=== PATIENT | female | born 1975 | race Caucasian/White ===

== ENCOUNTER → 2020-11-23 07:47 | Outpatient (CLI) | payer OTHER, SELFPAY ==
--- NOTE | 2020-11-23 07:53 | MM_ITS ---
PROCEDURE: MM DIG SCREENING MAMM BI W/CAD Digital Breast Tomosynthesis Included CLINICAL INDICATION: SCREENING COMPARISON: MG Screening-Bilateral Mammography from 05/30/2018 MG Screening-Bilateral Mammography from 10/15/2019 TECHNIQUE: Standard CC and MLO images and 3D Tomosynthesis was obtained. R2 CAD reviewed. FINDINGS: Scattered fibroglandular densities are seen throughout both breast and the findings are bilateral and symmetrical. There is a mole marker right breast. A single CAD marking left breast was reviewed appears to be benign. There is no suspicious lesion in either breast and no suspicious microcalcifications. IMPRESSION: Fibrofatty parenchyma with no suspicious lesions seen BI-RAD Category: 1 Negative FOLLOW-UP: 1YR 1 Year Follow-up (A letter has been sent to the patient regarding results of the study.) Dictated by: Dr. Avery Tate MD 11/26/2020 15:43 Dr. Avery Tate MD in [place] 11/26/2020 15:43
== END ==
PROVIDERS: PCP Family Medicine; Visit Provider Family Medicine
DX: Z12.31 Encounter for screening mammogram for malignant neoplasm of breast (principal)
CPT/HCPCS: 77063; 77067

== ENCOUNTER → 2021-03-04 16:09 | Outpatient (CLI) | payer OTHER, SELFPAY ==
[2021-03-06 08:16] LABS: FSH 9.7 mIU/mL (.); LH 17.4 mIU/mL (.)
== END ==
PROVIDERS: Visit Provider Nurse Practitioner Obstetrics & Gynecology
DX: E28.2 Polycystic ovarian syndrome (principal)
CPT/HCPCS: 36415; 83001; 83002

== ENCOUNTER → 2021-03-28 12:44 | Outpatient (CLI) | payer OTHER, SELFPAY ==
--- NOTE | 2021-03-28 12:44 | US_ITS ---
FINAL REPORT CLINICAL HISTORY: PELVIC PAIN -- INFERTILITY-- PAST HX OF PCOS FINDINGS: Transvaginal sonographic images of the pelvis were obtained. The uterus measures 7.1 by 3.5 by 4.5 cm. The endometrium measures 9 mm, which is within normal limits. There is a small hypoechoic foci in the myometrium consistent with fibroids. The right ovary measures 4.0 cm in length and left ovary measures 4.3 cm in length. Normal blood flow seen to the ovaries. Small cysts or follicles are present bilaterally. There is no evidence of free fluid. IMPRESSION: Small hypoechoic foci in the myometrium consistent with fibroids. Small cysts or follicles seen in each ovary. Reviewed, Interpreted and Dictated by Jaun Ward MD Transcribed by Melissa Rao Authenticated by Jaun Ward MD on 03/28/2021 02:20:17 PM [facility]
== END ==
PROVIDERS: PCP Family Medicine; Visit Provider Nurse Practitioner Obstetrics & Gynecology
DX: E28.2 Polycystic ovarian syndrome (principal)
CPT/HCPCS: 76830

== ENCOUNTER → 2022-02-08 08:18 | Outpatient (CLI) | payer OTHER, SELFPAY ==
--- NOTE | 2022-02-08 08:35 | MM_ITS ---
PROCEDURE INFORMATION: Exam: MG Bilateral Screening 3D Mammography Exam date and time: 02/08/2022 8:28 AM Age: 46 years old Clinical indication: Screening examination. Her mother had breast cancer. TECHNIQUE: Imaging protocol: Bilateral Screening tomosynthesis and 2D mammography including computer-aided detection (CAD) when performed. COMPARISON: 1. MG MM DIG SCREENING MAMM BI W/CAD 11/23/2020 8:03 AM 2. MG Screening-Bilateral Mammography 10/15/2019 9:42 AM MG Screening-Bilateral Mammography 05/30/2018 9:19 AM MG DMSB DIGITAL MAMM-SCREEN BILATERAL 04/12/2012 10:43 AM MG DMSB DIGITAL MAMM-SCREEN BILATERAL 03/30/2011 1:53 PM MG DMDXUL DIG MAMM-DX UNILATERAL-LT 05/02/2010 2:54 PM MG DMSB DIGITAL MAMM-SCREEN BILATERAL 04/19/2010 10:07 AM FINDINGS: MAMMOGRAPHY: Breast composition: There are scattered areas of fibroglandular density. Mass: Possible 0.3 cm lobulated mass in the left upper outer quadrant, middle 3rd, 8 cm from the nipple. Architectural distortion: None. Calcifications: No suspicious calcifications. Asymmetric density: None. Skin thickening: None. Axillary adenopathy: None. IMPRESSION: Patient to be recalled for left diagnostic spot compression in the CC and MLO view and left sonography for further evaluation of possible lobulated mass in the left breast. ASSESSMENT: BI-RADS Category 0: Incomplete- Need Additional Imaging Evaluation and/or Prior Mammograms for Comparison
== END ==
PROVIDERS: PCP Family Medicine; Visit Provider Family Medicine
DX: Z12.31 Encounter for screening mammogram for malignant neoplasm of breast (principal)
CPT/HCPCS: 77063; 77067

== ENCOUNTER → 2022-03-07 13:36 | Outpatient (CLI) | payer OTHER, SELFPAY ==
--- NOTE | 2022-03-07 13:41 | MM_ITS ---
PROCEDURE INFORMATION: Exam: US Left Breast, Complete MG Left Diagnostic Breast Tomosynthesis Exam date and time: 03/07/2022 1:37 PM Age: 46 years old Clinical indication: Recall on the basis of screening mammogram 02/08/2022 for further evaluation possible 0.3 cm lobulated mass in the left upper outer quadrant. TECHNIQUE: Imaging protocol: Complete ultrasound of all four quadrants of the Left breast and the retroareolar regions, including ultrasound of the axilla when performed. Left Diagnostic tomosynthesis and 2D mammography including computer-aided detection (CAD) when performed. Unilateral or bilateral exam. COMPARISON: 1. MG MM DIG SCREENING MAMM BI W/CAD 02/08/2022 8:28 AM 2. MG MM DIG SCREENING MAMM BI W/CAD 11/23/2020 8:03 AM 3. MG Screening-Bilateral Mammography 10/15/2019 9:42 AM FINDINGS: MAMMOGRAPHY: Spot compression confirms isodense 0.3 cm lobulated mass in the upper outer quadrant middle 3rd. ULTRASOUND: Left sonography, all 4 quadrants retroareolar and axilla demonstrates a 0.5 cm probable flattened cyst at 2 o'clock 8 cm from the nipple which appears to correlate with the mammographic finding. Sonographically unremarkable left axillary lymph node. IMPRESSION: Screening detected left breast mass corresponds to a probably benign cyst, suggest six-month follow-up left diagnostic mammogram and left targeted sonography, unless otherwise clinically indicated. ASSESSMENT: BI-RADS Category 3: Probably benign
== END ==
PROVIDERS: PCP Family Medicine; Visit Provider Family Medicine
DX: R92.8 Other abnormal and inconclusive findings on diagnostic imaging of breast (principal)
CPT/HCPCS: 76641; 77061; 77065; G0279

== ENCOUNTER → 2022-06-29 09:18 | Outpatient (CLI) | payer OTHER, SELFPAY ==
[2022-06-29 10:07] LABS: Basophils % 0.5 % (0.1-2.0); Eosinophils # 0.2 K/mm3 (0.0-0.4); Eosinophils % 1.9 % (0.1-12.0); Hematocrit 39.8 % (37.0-47.0); Hemoglobin 12.2 g/dL (12.2-16.2); Lymphocytes # 2.4 K/mm3 (0.7-4.5); Mean Corpuscular HGB Conc 30.8 g/dL (31.8-35.4); Mean Corpuscular Volume 87.6 fl (81-99); Monocytes # 0.5 K/mm3 (0.1-1.0); Neutrophils # 6.1 K/mm3 (1.8-7.8); Neutrophils % 66.6 % (37.0-80.0); Platelet Count 207 K/mm3 (142-424); Red Blood Count 4.54 M/mm3 (4.20-5.40); Red Cell Distribution Width 16.1 % (11.5-17.5); White Blood Count 9.2 K/mm3 (4.8-10.8)
[2022-06-29 10:30] LABS: Alanine Aminotransferase 30 U/L (12-78); Alkaline Phosphatase 92 U/L (38-126); Anion Gap 11.4 mEq/L (5-15); Aspartate Amino Transferase 29 U/L (14-36); Bilirubin,Total 0.4 mg/dl (0.2-1.3); Blood Urea Nitrogen 12 mg/dl (7-17); Calcium 8.5 mg/dl (8.4-10.2); Carbon Dioxide 24 mmol/L (22.0-30.0); Chloride 105 mmol/L (98-107); Chol/HDL Ratio 4.8 (1-3.5); Cholesterol 149 mg/dl (140-200); Estimated Glomerular Filt Rate 78 ml/min (>60); GFR (African American) 94 ML/MIN (>60); Glucose 147 mg/dl (74-100); HDL Cholesterol 31 mg/dl (40-60); Potassium 4.4 mmoL/L (3.5-5.1); Sodium 136 mmol/L (136-145); Triglycerides 196 mg/dl (30-150); VLDL Cholesterol 39 mg/dL (0-40)
[2022-06-29 10:39] LABS: 25-OH Vitamin D, Total 41.6 ng/mL (30-100)
[2022-06-29 10:41] LABS: Direct LDL Cholesterol 97.53 mg/dL (100-129)
[2022-06-29 10:59] LABS: Thyroid Stimulating Hormone 1.08 uIU/mL (0.465-4.68)
[2022-06-29 11:35] LABS: Vitamin B12 491 pg/mL (239-931)
[2022-06-30 13:18] LABS: Triiodothyronine (T3) Free 2.6 pg/mL (2.0-4.4)
== END ==
PROVIDERS: PCP Family Medicine; Visit Provider Family Medicine
DX: Z00.00 Encounter for general adult medical examination without abnormal findings (principal); E11.9 Type 2 diabetes mellitus without complications; E78.00 Pure hypercholesterolemia, unspecified; E78.5 Hyperlipidemia, unspecified; R53.83 Other fatigue; Z79.84 Long term (current) use of oral hypoglycemic drugs; E66.9 Obesity, unspecified; Z68.41 Body mass index [BMI] 40.0-44.9, adult
CPT/HCPCS: 36415; 80053; 80061; 82306; 82607; 82746; 83036; 84439; 84443; 84481; 85025

== ENCOUNTER → 2022-10-03 07:17 | Outpatient (CLI) | payer OTHER, SELFPAY ==
[2022-10-03 07:26] LABS: Microscopic, Urine URINE MICROSCOPIC (MICROSCOPIC)
[2022-10-03 07:42] LABS: Basophils % 0.5 % (0.1-2.0); Eosinophils # 0.5 K/mm3 (0.0-0.4); Eosinophils % 5.8 % (0.1-12.0); Hematocrit 37.6 % (37.0-47.0); Lymphocytes # 2.4 K/mm3 (0.7-4.5); Lymphocytes % 28.7 % (10-50); Mean Corpuscular HGB Conc 31.9 g/dL (31.8-35.4); Mean Corpuscular Hemoglobin 27.1 pg (27.0-31.2); Mean Corpuscular Volume 84.9 fl (81-99); Monocytes # 0.5 K/mm3 (0.1-1.0); Monocytes % 5.5 % (1.7-9.3); Neutrophils # 4.9 K/mm3 (1.8-7.8); Neutrophils % 59.5 % (37.0-80.0); Platelet Count 208 K/mm3 (142-424); Red Blood Count 4.43 M/mm3 (4.20-5.40); Red Cell Distribution Width 14.2 % (11.5-17.5); White Blood Count 8.3 K/mm3 (4.8-10.8)
[2022-10-03 07:45] LABS: Appearance,Urine CLEAR (Clear); Bilirubin,Urine Negative (Negative); Blood, Urine Negative (Negative); Color,Urine YELLOW (Yellow); Glucose,Urine (UA) Negative (Negative); Ketones,Urine Negative (Negative); Leukocyte Esterase,Urine Negative (Negative); Nitrate,Urine Negative (Negative); Protein,Urine Negative (Negative); Specific Gravity, Urine 1.025 (1.005-1.030); Urobilinogen,Urine 0.2 EU/dl (0.2)
[2022-10-03 08:18] LABS: Alanine Aminotransferase 30 U/L (12-78); Alkaline Phosphatase 93 U/L (38-126); Aspartate Amino Transferase 32 U/L (14-36); Bilirubin,Total 0.2 mg/dl (0.2-1.3); Blood Urea Nitrogen 17 mg/dl (7-17); Carbon Dioxide 28 mmol/L (22.0-30.0); Cholesterol 143 mg/dl (140-200); Estimated Glomerular Filt Rate 91 ml/min (>60); GFR (African American) 110 ML/MIN (>60); Triglycerides 214 mg/dl (30-150); VLDL Cholesterol 43 mg/dL (0-40)
[2022-10-03 08:29] LABS: Direct LDL Cholesterol 85.87 mg/dL (100-129)
[2022-10-03 08:33] LABS: Free T4 (Free Thyroxine) 1.02 ng/dl (0.78-2.19)
[2022-10-03 08:35] LABS: Albumin Level 3.9 g/dl (3.5-5.0); Anion Gap 10.3 mEq/L (5-15); Calcium 9.2 mg/dl (8.4-10.2); Chloride 104 mmol/L (98-107); Chol/HDL Ratio 4.2 (1-3.5); Glucose 140 mg/dl (74-100); HDL Cholesterol 34 mg/dl (40-60); Potassium 4.3 mmoL/L (3.5-5.1); Sodium 138 mmol/L (136-145); Total Protein,Serum 5.9 g/dl (6.3-8.2)
[2022-10-03 08:48] LABS: Thyroid Stimulating Hormone 1.66 uIU/mL (0.465-4.68)
[2022-10-03 09:23] LABS: Vitamin B12 662 pg/mL (239-931)
[2022-10-03 09:24] LABS: Folate 5.82 ng/mL
[2022-10-03 09:48] LABS: Hemoglobin A1C 6.3 % (4.0-6.0)
== END ==
PROVIDERS: PCP Family Medicine; Visit Provider Family Medicine
DX: Z00.00 Encounter for general adult medical examination without abnormal findings (principal); E11.9 Type 2 diabetes mellitus without complications; R53.83 Other fatigue; E78.00 Pure hypercholesterolemia, unspecified; Z79.84 Long term (current) use of oral hypoglycemic drugs
CPT/HCPCS: 36415; 80053; 80061; 81001; 82043; 82306; 82607; 82746; 83036; 84439; 84443; 84481; 85025

== ENCOUNTER → 2023-01-10 07:51 | Outpatient (CLI) | payer OTHER, SELFPAY ==
[2023-01-10 08:31] LABS: Basophils % 0.5 % (0.1-2.0); Eosinophils # 0.1 K/mm3 (0.0-0.4); Eosinophils % 1.6 % (0.1-12.0); Hematocrit 38.7 % (37.0-47.0); Hemoglobin 13.1 g/dL (12.2-16.2); Lymphocytes # 1.8 K/mm3 (0.7-4.5); Lymphocytes % 22.2 % (10-50); Mean Corpuscular HGB Conc 33.8 g/dL (31.8-35.4); Mean Corpuscular Hemoglobin 29.8 pg (27.0-31.2); Mean Corpuscular Volume 88.3 fl (81-99); Mean Platelet Volume 8.8 fl (7.4-10.4); Monocytes # 0.4 K/mm3 (0.1-1.0); Monocytes % 4.8 % (1.7-9.3); Neutrophils # 5.9 K/mm3 (1.8-7.8); Neutrophils % 70.8 % (37.0-80.0); Platelet Count 169 K/mm3 (142-424); Red Blood Count 4.38 M/mm3 (4.20-5.40); Red Cell Distribution Width 15.7 % (11.5-17.5); White Blood Count 8.3 K/mm3 (4.8-10.8)
[2023-01-10 09:27] LABS: Hemoglobin A1C 5.9 % (4.0-6.0)
[2023-01-10 09:50] LABS: Chloride 104 mmol/L (98-107)
[2023-01-10 09:51] LABS: Potassium 4.2 mmoL/L (3.5-5.1); Sodium 138 mmol/L (136-145)
[2023-01-10 09:53] LABS: Blood Urea Nitrogen 16 mg/dl (7-17); Estimated Glomerular Filt Rate 90 ml/min (>60); GFR (African American) 109 ML/MIN (>60)
[2023-01-10 09:54] LABS: Alanine Aminotransferase 37 U/L (12-78); Albumin Level 3.9 g/dl (3.5-5.0); Albumin/Globulin Ratio 1.9 (1.1-1.8); Alkaline Phosphatase 92 U/L (38-126); Anion Gap 13.2 mEq/L (5-15); Aspartate Amino Transferase 36 U/L (14-36); Bilirubin,Total 0.2 mg/dl (0.2-1.3); Calcium 8.7 mg/dl (8.4-10.2); Carbon Dioxide 25 mmol/L (22.0-30.0); Chol/HDL Ratio 5.1 (1-3.5); Cholesterol 153 mg/dl (140-200); Globulin 2.1 g/dL (1.3-3.2); Glucose 138 mg/dl (74-100); HDL Cholesterol 30 mg/dl (40-60); Iron 55 ug/dL (37-170); Triglycerides 135 mg/dl (30-150); VLDL Cholesterol 27 mg/dL (0-40)
[2023-01-10 10:02] LABS: 25-OH Vitamin D, Total 43.2 ng/mL (30-100); Free T4 (Free Thyroxine) 1.04 ng/dl (0.78-2.19)
[2023-01-10 10:04] LABS: Total Iron Binding Capacity 371 ug/dL (265-497)
[2023-01-10 10:06] LABS: Direct LDL Cholesterol 101.49 mg/dL (100-129)
[2023-01-10 10:17] LABS: Thyroid Stimulating Hormone 1.24 uIU/mL (0.465-4.68)
[2023-01-10 10:29] LABS: Ferritin 14.9 ng/ml (6.24-137)
[2023-01-10 10:52] LABS: Vitamin B12 698 pg/mL (239-931)
[2023-01-10 11:05] LABS: Folate 9.69 ng/mL
== END ==
PROVIDERS: PCP Family Medicine; Visit Provider Family Medicine
DX: E11.9 Type 2 diabetes mellitus without complications (principal); D64.9 Anemia, unspecified; Z68.41 Body mass index [BMI] 40.0-44.9, adult; R53.83 Other fatigue; Z79.84 Long term (current) use of oral hypoglycemic drugs; Z00.00 Encounter for general adult medical examination without abnormal findings
CPT/HCPCS: 36415; 80053; 80061; 82306; 82607; 82728; 82746; 83036; 83540; 83550; 84439; 84443; 84481; 85025

== ENCOUNTER 2023-05-14 07:43 | Outpatient (CLI) | payer OTHER, SELFPAY ==
[2023-05-14 08:21] LABS: Basophils % 0.4 % (0.1-2.0); Eosinophils # 0.2 K/mm3 (0.0-0.4); Eosinophils % 1.8 % (0.1-12.0); Hematocrit 40.2 % (37.0-47.0); Hemoglobin 13.8 g/dL (12.2-16.2); Lymphocytes # 2.3 K/mm3 (0.7-4.5); Lymphocytes % 27.7 % (10-50); Mean Corpuscular HGB Conc 34.2 g/dL (31.8-35.4); Mean Corpuscular Hemoglobin 30.5 pg (27.0-31.2); Mean Platelet Volume 9.1 fl (7.4-10.4); Monocytes # 0.4 K/mm3 (0.1-1.0); Monocytes % 5.2 % (1.7-9.3); Neutrophils # 5.4 K/mm3 (1.8-7.8); Neutrophils % 64.8 % (37.0-80.0); Platelet Count 215 K/mm3 (142-424); Red Blood Count 4.52 M/mm3 (4.20-5.40); Red Cell Distribution Width 13.6 % (11.5-17.5); White Blood Count 8.3 K/mm3 (4.8-10.8)
[2023-05-14 09:01] LABS: Alanine Aminotransferase 33 U/L (12-78); Albumin Level 4.1 g/dl (3.5-5.0); Albumin/Globulin Ratio 1.9 (1.1-1.8); Alkaline Phosphatase 102 U/L (38-126); Anion Gap 9.6 mEq/L (5-15); Aspartate Amino Transferase 29 U/L (14-36); Bilirubin,Total 0.4 mg/dl (0.2-1.3); Blood Urea Nitrogen 10 mg/dl (7-17); Calcium 9.2 mg/dl (8.4-10.2); Carbon Dioxide 28 mmol/L (22.0-30.0); Chloride 107 mmol/L (98-107); Chol/HDL Ratio 4.6 (1-3.5); Cholesterol 124 mg/dl (140-200); Estimated Glomerular Filt Rate 68 ml/min (>60); GFR (African American) 82 ML/MIN (>60); Globulin 2.2 g/dL (1.3-3.2); Glucose 103 mg/dl (74-100); HDL Cholesterol 27 mg/dl (40-60); Potassium 4.6 mmoL/L (3.5-5.1); Sodium 140 mmol/L (136-145); Total Protein,Serum 6.3 g/dl (6.3-8.2); Triglycerides 165 mg/dl (30-150); VLDL Cholesterol 33 mg/dL (0-40)
[2023-05-14 09:02] LABS: Hemoglobin A1C 5.4 % (4.0-6.0)
[2023-05-14 09:12] LABS: Direct LDL Cholesterol 70.11 mg/dL (100-129)
[2023-05-14 09:19] LABS: Free T4 (Free Thyroxine) 1.16 ng/dl (0.78-2.19)
[2023-05-14 09:23] LABS: 25-OH Vitamin D, Total 63.2 ng/mL (30-100)
[2023-05-14 09:32] LABS: Thyroid Stimulating Hormone 0.85 uIU/mL (0.465-4.68)
[2023-05-14 10:08] LABS: Vitamin B12 756 pg/mL (239-931)
[2023-05-14 10:14] LABS: Folate 9.47 ng/mL
[2023-05-14 10:33] LABS: Iron 56 ug/dL (37-170)
[2023-05-14 10:42] LABS: Total Iron Binding Capacity 324 ug/dL (265-497)
[2023-05-14 11:08] LABS: Ferritin 9.61 ng/ml (6.24-137)
== END 2023-05-14 23:59 ==
LOC: LAB 07:44
PROVIDERS: PCP Family Medicine; Visit Provider Family Medicine
DX: E11.9 Type 2 diabetes mellitus without complications (principal); E78.00 Pure hypercholesterolemia, unspecified; D64.9 Anemia, unspecified; E66.9 Obesity, unspecified; Z68.39 Body mass index [BMI] 39.0-39.9, adult; Z79.899 Other long term (current) drug therapy
CPT/HCPCS: 36415; 80053; 80061; 82306; 82607; 82728; 82746; 83036; 83540; 83550; 84439; 84443; 84481; 85025

== ENCOUNTER 2023-08-21 07:33 | Outpatient (CLI) | payer OTHER, SELFPAY ==
[2023-08-21 08:53] LABS: Alanine Aminotransferase 24 U/L (12-78); Albumin Level 4.2 g/dl (3.5-5.0); Albumin/Globulin Ratio 1.8 (1.1-1.8); Alkaline Phosphatase 104 U/L (38-126); Anion Gap 13.4 mEq/L (5-15); Aspartate Amino Transferase 24 U/L (14-36); Bilirubin,Total 0.3 mg/dl (0.2-1.3); Blood Urea Nitrogen 13 mg/dl (7-17); Calcium 9.4 mg/dl (8.4-10.2); Carbon Dioxide 27 mmol/L (22.0-30.0); Chloride 102 mmol/L (98-107); Chol/HDL Ratio 4.1 (1-3.5); Cholesterol 147 mg/dl (140-200); Estimated Glomerular Filt Rate 78 ml/min (>60); GFR (African American) 94 ML/MIN (>60); Globulin 2.4 g/dL (1.3-3.2); Glucose 119 mg/dl (74-100); HDL Cholesterol 36 mg/dl (40-60); Potassium 4.4 mmoL/L (3.5-5.1); Sodium 138 mmol/L (136-145); Total Protein,Serum 6.6 g/dl (6.3-8.2); Triglycerides 226 mg/dl (30-150); VLDL Cholesterol 45 mg/dL (0-40)
[2023-08-21 09:04] LABS: Direct LDL Cholesterol 83.95 mg/dL (100-129)
[2023-08-21 09:14] LABS: Hemoglobin A1C 5.7 % (4.0-6.0)
== END 2023-08-21 23:59 | disposition home or self-care (01) ==
LOC: LAB 07:34
PROVIDERS: PCP Family Medicine; Visit Provider Family Medicine
DX: E11.9 Type 2 diabetes mellitus without complications (principal); E78.00 Pure hypercholesterolemia, unspecified
CPT/HCPCS: 36415; 80053; 80061; 83036

== ENCOUNTER 2023-11-13 07:41 | Outpatient (CLI) | payer OTHER, SELFPAY ==
[2023-11-13 09:25] LABS: Alanine Aminotransferase 29 U/L (12-78); Albumin Level 3.7 g/dl (3.5-5.0); Albumin/Globulin Ratio 1.5 (1.1-1.8); Alkaline Phosphatase 95 U/L (38-126); Anion Gap 10.6 mEq/L (5-15); Aspartate Amino Transferase 27 U/L (14-36); Bilirubin,Total 0.3 mg/dl (0.2-1.3); Blood Urea Nitrogen 12 mg/dl (7-17); Calcium 9.1 mg/dl (8.4-10.2); Carbon Dioxide 24 mmol/L (22.0-30.0); Chloride 108 mmol/L (98-107); Chol/HDL Ratio 3.8 (1-3.5); Cholesterol 146 mg/dl (140-200); Estimated Glomerular Filt Rate 78 ml/min (>60); GFR (African American) 94 ML/MIN (>60); Globulin 2.4 g/dL (1.3-3.2); Glucose 112 mg/dl (74-100); HDL Cholesterol 38 mg/dl (40-60); Potassium 4.6 mmoL/L (3.5-5.1); Sodium 138 mmol/L (136-145); Total Protein,Serum 6.1 g/dl (6.3-8.2); Triglycerides 146 mg/dl (30-150); VLDL Cholesterol 29 mg/dL (0-40)
[2023-11-13 09:36] LABS: Direct LDL Cholesterol 83.99 mg/dL (100-129)
[2023-11-13 09:58] LABS: Hemoglobin A1C 5.6 % (4.0-6.0)
== END 2023-11-13 23:59 | disposition home or self-care (01) ==
LOC: LAB 07:42
PROVIDERS: PCP Family Medicine; Visit Provider Family Medicine
DX: E78.00 Pure hypercholesterolemia, unspecified (principal); E11.9 Type 2 diabetes mellitus without complications
CPT/HCPCS: 36415; 80053; 80061; 83036

== ENCOUNTER 2024-02-13 07:31 | Outpatient (CLI) | payer OTHER, SELFPAY ==
[2024-02-13 07:37] LABS: Microscopic, Urine URINE MICROSCOPIC (MICROSCOPIC)
[2024-02-13 07:49] LABS: Basophils # 0.1 K/mm3 (0-0.2); Basophils % 0.7 % (0.1-2.0); Eosinophils # 0.2 K/mm3 (0.0-0.4); Eosinophils % 1.8 % (0.1-12.0); Hematocrit 40.7 % (37.0-47.0); Hemoglobin 13.8 g/dL (12.2-16.2); Lymphocytes # 2.3 K/mm3 (0.7-4.5); Lymphocytes % 25.6 % (10-50); Mean Corpuscular Volume 85.3 fl (81-99); Mean Platelet Volume 9.3 fl (7.4-10.4); Monocytes # 0.5 K/mm3 (0.1-1.0); Monocytes % 5.9 % (1.7-9.3); Neutrophils # 5.9 K/mm3 (1.8-7.8); Platelet Count 181 K/mm3 (142-424); Red Blood Count 4.77 M/mm3 (4.20-5.40); Red Cell Distribution Width 14.4 % (11.5-17.5); White Blood Count 8.9 K/mm3 (4.8-10.8)
[2024-02-13 07:52] LABS: Appearance,Urine SL CLOUDY (Clear); Bilirubin,Urine Negative (Negative); Blood, Urine Negative (Negative); Color,Urine YELLOW (Yellow); Glucose,Urine (UA) Negative (Negative); Ketones,Urine Negative (Negative); Leukocyte Esterase,Urine Negative (Negative); Nitrate,Urine Negative (Negative); Protein,Urine Negative (Negative); Specific Gravity, Urine >= 1.030 (1.005-1.030); Urobilinogen,Urine 0.2 EU/dl (0.2)
[2024-02-13 08:16] LABS: Bacteria,Urine Trace /lpf
[2024-02-13 08:23] LABS: Alanine Aminotransferase 20 U/L (12-78); Albumin Level 3.9 g/dl (3.5-5.0); Albumin/Globulin Ratio 2.1 (1.1-1.8); Alkaline Phosphatase 88 U/L (38-126); Anion Gap 12.2 mEq/L (5-15); Aspartate Amino Transferase 22 U/L (14-36); Bilirubin,Total 0.5 mg/dl (0.2-1.3); Blood Urea Nitrogen 12 mg/dl (7-17); Calcium 8.9 mg/dl (8.4-10.2); Carbon Dioxide 25 mmol/L (22.0-30.0); Chloride 107 mmol/L (98-107); Chol/HDL Ratio 3.3 (1-3.5); Cholesterol 118 mg/dl (140-200); Estimated Glomerular Filt Rate 90 ml/min (>60); GFR (African American) 109 ML/MIN (>60); Globulin 1.9 g/dL (1.3-3.2); Glucose 88 mg/dl (74-100); HDL Cholesterol 36 mg/dl (40-60); Potassium 4.2 mmoL/L (3.5-5.1); Sodium 140 mmol/L (136-145); Total Protein,Serum 5.8 g/dl (6.3-8.2); Triglycerides 117 mg/dl (30-150); VLDL Cholesterol 23 mg/dL (0-40)
[2024-02-13 08:32] LABS: Hemoglobin A1C 5.2 % (4.0-6.0)
[2024-02-13 08:33] LABS: Direct LDL Cholesterol 71.34 mg/dL (100-129)
[2024-02-13 08:37] LABS: Free T4 (Free Thyroxine) 1.03 ng/dl (0.78-2.19)
[2024-02-13 08:52] LABS: Thyroid Stimulating Hormone 1.03 uIU/mL (0.465-4.68)
[2024-02-13 09:28] LABS: Folate > 20.00 ng/mL; Vitamin B12 831 pg/mL (239-931)
[2024-02-14 03:52] LABS: Triiodothyronine (T3) Free 2.8 pg/mL (2.0-4.4)
== END 2024-02-13 23:59 | disposition home or self-care (01) ==
LOC: LAB 07:32
PROVIDERS: PCP Family Medicine; Visit Provider Family Medicine
DX: Z00.00 Encounter for general adult medical examination without abnormal findings (principal); E11.9 Type 2 diabetes mellitus without complications; E87.0 Hyperosmolality and hypernatremia; Z79.85 Long-term (current) use of injectable non-insulin antidiabetic drugs
CPT/HCPCS: 36415; 80050; 80053; 80061; 81001; 82306; 82607; 82746; 83036; 84439; 84443; 84481; 85025

== ENCOUNTER 2024-07-08 07:35 | Outpatient (CLI) | payer OTHER, SELFPAY ==
--- OUTSIDE RECORDS SUMMARY | 2024-07-08 07:38 | XMS_ITS | Data Portability ---
Author Organization [facility],, Main Office Address [address] [place] [address] Assessment Encounter Date Assessment Date Assessment LastModified by Organization Details LastModified Time 05/21/2017 05/21/2017 Annual gynecological exam performed. Patient will come back in a year unless there are new symptoms. [email or web address] Not available 05/21/2017 09:37:15 05/28/2017 05/28/2017 Patient presented for follow up of labs. Studies ordered as below. Discussed plan with patient, who expressed understanding. Follow up as noted below. [email or web address] Not available 05/28/2017 10:23:22 10/08/2019 10/08/2019 Annual gynecological exam performed. Patient will come back in a year unless there are new symptoms. [email or web address] Not available 10/08/2019 08:42:46 Plan of Treatment Reminders Order Date Submit Date Provider Last Modified By Organization Details Last Modified Time Details Appointments None recorded. Lab urinalysis , dipstick 2019 020 YEISON Main Office, [address], [place], [address], 0 09:44:48 test, urine 2019 020 YEISON Main Office, [address], [place], [address], 0 09:44:31 urinalysis , dipstick 2017 018 aclaxon Main Office, [address], [place], [address], 8 10:51:00 test, urine 2017 018 aclaxon Main Office, [address], [place], [address], 8 10:51:00 Referral None recorded. Procedures None recorded. Surgeries None recorded. Imaging None recorded. Medication Orders Medrol (Reji) 4 mg tablets in a dose pack 2019 020 INTERFACE [facility], [address] [place] [address], [address], 0 09:29:12 Contrave 8 mg-90 mg tablet,ext ended release 2017 [email or web address] [place] [address] Pharmacy [facility], [address] [place] [address], [address], 0 08:43:18 Vitamin D2 1,250 mcg (50,000 unit) capsule 2017 [email or web address] [place] [address] Pharmacy [facility], [address] [place] [address], [address], 0 08:43:32 Patient TargetsNo targets recorded. Patient Instructions Encounter Date Encounter Id Patient Instructions Last Modified By Organization Details Last Modified Time 05/21/2017 [id number] abnormal weight gain: care instructions [email or web address] Not available 05/21/2017 10:51:03 05/28/2017 [id number] When You Want to Lose Weight: Care Instructions [email or web address] Not available 05/28/2017 09:29:06 10/08/2019 [id number] body mass index: care instructions [email or web address] Not available 01/04/2020 13:52:13 learning about healthy weight [email or web address] Not available 01/04/2020 13:52:13 Patient was evaluated and managed with Dr Husain Distinct and separate issues addressed beyond annual gynecology exam. Added 35-45 minutes on to visit. Patient's questions answered, concerns addressed. [email or web address] Not available 01/04/2020 13:51:14 Reason for Referral None Reported. Results Created Date Observation Date Name Description Value Unit Range Abnormal Flag Note LastModifiedBy Organization Detail LastModifiedTime 05/21/19 18 05/23/2017 pap, LB Pap test thin prep Negati ve for Intrae pithel ial Lesion or Malign bianca normal ACCES ELISE #: [id number] Sourc e: Cervi jovani/E ndoce rvica l LMP: Date Taken : 05/21 Speci men Type: ThinP rep Vial Date Repor shivam: 05/23 Clini jovani Data: LMP: Last Pap: wnl ([id number]) Cytot ech: Janna Hernandes ass, CT( CP) Speci men Adequ acy: Satis facto ry for evalu ation Endoc ervic al/tr ansfo rmati on zone compo nent prese nt Gener al Categ oriza tion: NEGAT KAMI FOR INTRA EPITH ELIAL LESIO N OR [place] AIMEE Study for HPV testi ng not indic ated. This speci men has been rell zed by the ThinP rep Imagi ng Syste m, an inter activ e compu ter syste m which [place] [facility] [place] ThinP rep Pap Test slide s. Follo wing imagi ng, the slide was revie wed by a Cytot echno logis t and/o r Patho logis t. Techn ical servi steve provi ded by: Assoc iated Patho logis ts, [facility] d/b/a [facility] [address], [address] [place] [address] Prabhu pizarro M.D., [facility] Case revie wed and diagn osis rende red at: Assoc iated Patho logis ts [address], [address] [place] [address] Prabhu pizarro M.D., [facility] ----- ----- ----- ----- ----- ----- ----- ----- ----- ----- ----- ----- Not Available [facility]) [address], [place], [address], 05/23/2017 10:05:17 05/21/19 18 05/22/2017 lipid panel , serum cholesterol 166 mg/dL 75-200 Not Available [facility] ([facility]) [address] [place] [address] [address], [place], [address], 05/23/2017 11:19:25 05/21/19 18 05/22/2017 lipid panel , serum triglyceride s 140 mg/dL <150 Not Available [facility] ([facility]) [address] [place] [address] [address], [place], [address], 05/23/2017 11:19:25 05/21/19 18 05/22/2017 lipid panel , serum HDL cholesterol 35 mg/dL >39 low Not Available [facility] ([facility]) [address] [place] [address] [address], [place], [address], 05/23/2017 11:19:25 05/21/19 18 05/22/2017 lipid panel , serum cholesterol / HDL ratio 4.74 ratio 0.00-4 .44 high Not Available [facility] ([facility]) [address] [place] [address] [address], [place], [address], 05/23/2017 11:19:25 05/21/19 18 05/22/2017 lipid panel , serum non-HDL cholesterol 131 mg/dL <130 high Not Available [facility] ([facility]) [address] [place] [address] [address], [place], [address], 05/23/2017 11:19:25 05/21/19 18 05/22/2017 lipid panel , serum LDL cholesterol (calculation ) 103 mg/dL <130 LDL Kandy stero l Level s Less than 100 mg/dL Optim al 100 to 129 mg/dL Near Optim al/ Above Optim al 130 to 159 mg/dL Borde rline High 160 to 189 mg/dL High 190 mg/dL and above Very High * Categ zack as recom arlyn d by the 2004 ATPII I guide lines Not Available [facility] Casey Hernandez ([facility]) [address] [facility] [address], [place], [address], 05/23/2017 11:19:25 05/21/19 18 05/22/2017 lipid panel , serum LDL/HDL ratio 2.9 ratio <3.3 ___ LDL Kandy stero l Patie nt Histo ry ___ Test Date: 05/21 LDL Resul ts: 103 Units : mg/dL % Chavez e: - ___ Note: Ameri can Heart Assoc iatio n recom mends using total kandy stero l and HDL numbe rs rathe r than ratio s for patie nt class ifica tion. New guide lines from AHA/A CC recom mend again st using speci fic LDL targe ts for patie nt manag ement . Rathe r a perce ntage decre ase is the eleanor ed patie nt manag ement algor haileymadolph en 30% and 50% reduc tion. If you would like to have your patie nts Cardi ovasc ular Risk Asses sment class ifica tion (per 2012 AHA/A CC guide lines ) 10-ye ar ASCVD score , pleas e order the ASCVD Advan remigio Lipid Profi dutch (LIPC VD). Not Available [facility] ([facility]) [address] [place] [address] [address], [place], [address], 05/23/2017 11:19:25 05/21/19 18 05/22/2017 CBC w/ auto diff WBC 11.1 K/uL 3.8-11 .5 E ffect kami 03/05 New WBC Count Refer ence Range for Adult Males and Femal es: 3.8-1 1.5 K/uL Previ ous WBC Count Refer ence Range for Adult Males and Femal es: 3.8-1 2.8 K/uL Not Available [facility] ([facility]) [address] [place] [address] [address], [place], [address], 05/23/2017 11:19:26 05/21/19 18 05/22/2017 CBC w/ auto diff red blood cell count (RBC) 4.63 M/mm3 3.60-5 .30 E ffect kami 2016 New Red Blood Count Refer ence Range for Adult Femal es: 3.6-5 .3 M/mm3 Previ ous Red Blood Count Refer ence Range for Adult Femal es: 3.7-5 .1 M/mm3 Not Available [facility] ([facility]) [address] [place] [address] [address], [place], [address], 05/23/2017 11:19:26 05/21/19 18 05/22/2017 CBC w/ auto diff hemoglobin (HGB) 13.9 gm/dL 12.0-1 6.0 Not Available [facility] ([facility]) [address] [place] [address] [address], [place], [address], 05/23/2017 11:19:26 05/21/19 18 05/22/2017 CBC w/ auto diff hematocrit (HCT) 43.6 % 37.4-4 8.3 Not Available [facility] ([facility]) [address] [place] [address] [address], [place], [address], 05/23/2017 11:19:26 05/21/19 18 05/22/2017 CBC w/ auto diff MCV 94.2 fL 81.0-1 02.0 Not Available [facility] ([facility]) [address] [place] [address] [address], [place], [address], 05/23/2017 11:19:26 05/21/19 18 05/22/2017 CBC w/ auto diff MCH 30.0 pg 26.9-3 5.0 Not Available [facility] ([facility]) [address] [place] [address] [address], [place], [address], 05/23/2017 11:19:26 05/21/19 18 05/22/2017 CBC w/ auto diff MCHC 31.9 g/dL 30.4-3 4.8 Not Available [facility] ([facility]) [address] [place] [address] [address], [place], [address], 05/23/2017 11:19:26 05/21/19 18 05/22/2017 CBC w/ auto diff RDW 46.5 fL 38.6-5 3.8 Not Available [facility] ([facility]) [address] [place] [address] [address], [place], [address], 05/23/2017 11:19:26 05/21/19 18 05/22/2017 CBC w/ auto diff platelet count 220 K/cum m 137-39 7 Not Available [facility] ([facility]) [address] [place] [address] [address], [place], [address], 05/23/2017 11:19:26 05/21/19 18 05/22/2017 CBC w/ auto diff neutrophils automated 66.5 % 41.0-7 7.0 Not Available [facility] ([facility]) [address] [place] [address] [address], [place], [address], 05/23/2017 11:19:26 05/21/19 18 05/22/2017 CBC w/ auto diff lymphocytes automated 24.6 % 14.0-4 8.0 Not Available [facility] ([facility]) [address] [place] [address] [address], [place], [address], 05/23/2017 11:19:26 05/21/19 18 05/22/2017 CBC w/ auto diff monocytes automated 5.2 % 4.0-13 .0 Not Available [facility] ([facility]) [address] [place] [address] [address], [place], [address], 05/23/2017 11:19:26 05/21/19 18 05/22/2017 CBC w/ auto diff eosinophils automated 2.8 % 1.0-8. 0 Not Available [facility] ([facility]) [address] [place] [address] [address], [place], [address], 05/23/2017 11:19:26 05/21/19 18 05/22/2017 CBC w/ auto diff basophils automated 0.4 % 0.0-1. 5 Not Available [facility] ([facility]) [address] [place] [address] [address], [place], [address], 05/23/2017 11:19:26 05/21/19 18 05/22/2017 CBC w/ auto diff immature granulocyte automated 0.5 % 0.0-1. 0 Not Available [facility] ([facility]) [address] [place] [address] [address], [place], [address], 05/23/2017 11:19:26 05/21/19 18 05/22/2017 CMP, serum or plasm a sodium 139 mEq/L 134-14 5 Not Available [facility] ([facility]) [address] [place] [address] [address], [place], [address], 05/23/2017 11:19:26 05/21/19 18 05/22/2017 CMP, serum or plasm a potassium 3.9 mEq/L 3.4-5. 4 Not Available [facility] ([facility]) [address] [place] [address] [address], [place], [address], 05/23/2017 11:19:26 05/21/19 18 05/22/2017 CMP, serum or plasm a chloride 103 mEq/L 97-109 Not Available [facility] ([facility]) [address] [place] [address] [address], [place], [address], 05/23/2017 11:19:26 05/21/19 18 05/22/2017 CMP, serum or plasm a CO2 22 mEq/L 22-32 Not Available [facility] ([facility]) [address] [place] [address] [address], [place], [address], 05/23/2017 11:19:26 05/21/19 18 05/22/2017 CMP, serum or plasm a glucose 92 mg/dL 65-99 Ef fecti ve 2016* New GLU Refer ence Range : 65-99 mg/dL Previ ous GLU Refer ence Range : 65-10 5 mg/dL Not Available [facility] ([facility]) [address] [place] [address] [address], [place], [address], 05/23/2017 11:19:26 05/21/19 18 05/22/2017 CMP, serum or plasm a BUN 14 mg/dL 5-26 Not Available [facility] ([facility]) [address] [place] [address] [address], [place], [address], 05/23/2017 11:19:26 05/21/19 18 05/22/2017 CMP, serum or plasm a creatinine 0.8 mg/dL 0.5-1. 5 Not Available [facility] ([facility]) [address] [place] [address] [address], [place], [address], 05/23/2017 11:19:26 05/21/19 18 05/22/2017 CMP, serum or plasm a calcium 9.4 mg/dL 8.5-10 .3 Not Available [facility] ([facility]) [address] [place] [address] [address], [place], [address], 05/23/2017 11:19:26 05/21/19 18 05/22/2017 CMP, serum or plasm a protein 6.5 g/dL 6.1-8. 3 Not Available [facility] ([facility]) [address] [place] [address] [address], [place], [address], 05/23/2017 11:19:26 05/21/19 18 05/22/2017 CMP, serum or plasm a albumin 4.6 g/dL 3.7-5. 2 Not Available [facility] ([facility]) [address] [place] [address] [address], [place], [address], 05/23/2017 11:19:26 05/21/19 18 05/22/2017 CMP, serum or plasm a alkaline phosphatase 90 IU/L 38-126 Not Available [facility] ([facility]) [address] [place] [address] [address], [place], [address], 05/23/2017 11:19:26 05/21/19 18 05/22/2017 CMP, serum or plasm a ALT (SGPT) 21 IU/L 7-52 Not Available [facility] ([facility]) [address] [place] [address] [address], [place], [address], 05/23/2017 11:19:26 05/21/19 18 05/22/2017 CMP, serum or plasm a AST (SGOT) 16 IU/L 13-39 Not Available [facility] ([facility]) [address] [place] [address] [address], [place], [address], 05/23/2017 11:19:26 05/21/19 18 05/22/2017 CMP, serum or plasm a bilirubin, total 0.4 mg/dL 0.2-1. 5 Not Available [facility] [address] [place] [address] [address], [place], [address], 05/23/2017 11:19:26 05/21/19 18 05/22/2017 CMP, serum or plasm a A/G ratio 2.4 mg/dL 1.1-2. 5 Not Available [facility] [address] [place] [address] [address], [place], [address], 05/23/2017 11:19:26 05/21/19 18 05/22/2017 GFR, estim ated (eGFR ), serum GFR/black >60 mL/mi n/1.7 3m2 >60 Not Available [facility] [address] [place] [address] [address], [place], [address], 05/23/2017 11:19:27 05/21/19 18 05/22/2017 GFR, estim ated (eGFR ), serum GFR/white >60 mL/mi n/1.7 3m2 >60 Chron ic Kidne y Disea se: Less than 60 ml/mi n/1.7 3 squar e meter s End Stage Renal Disea se: Less than 15 ml/mi n/1.7 3 squar e meter s Not Available [facility]) [address] [place] [address] [address], [place], [address], 05/23/2017 11:19:27 05/21/19 18 05/22/2017 proge stero ne, serum progesterone 0.42 NG/mL PROGE STERO NE REFER ENCE RANGE Male: 0.10 - 0.84 Femal e: Non-p regna nt femal e: Mid-f ollic ular phase 0.31 - 1.52 Mid-l uteal phase 5.16 - 18.56 Post menop ausal <0.08 - 0.78 Pregn bianca: First trime ster 4.73 - 50.74 Secon d trime ster 19.41 - 45.30 Not Available [facility] ([facility]) [address] [place] [address] [address], [place], [address], 05/23/2017 11:19:27 05/21/19 18 05/22/2017 FSH (foll icle- stimu latin g hormo ne), serum FSH 4.75 mIU/m L FSH Refer ence Range Males : 1.27 - 19.26 Femal es: Mid-F ollic ular Phase : 3.85 - 8.78 Mid-C ycle Peak: 4.54 - 22.51 Mid-L uteal Phase : 1.79 - 5.12 Postm enopa usal: 16.74 - 113.5 9 Not Available [facility] ([facility]) [address] [place] [address] [address], [place], [address], 05/23/2017 11:19:27 05/21/19 18 05/22/2017 estra diol, serum estradiol 42 pg/mL ESTRA DIOL REFER ENCE RANGE Male: <20 - 47 pg/ml Femal e: Post Menop ausal <20 - 40 pg/ml Mid-f ollic ular phase 27 - 122 pg/ml Mid-l uteal phase 49 - 291 pg/ml Jackelyn- ovula tory phase 95 - 433 pg/ml Not Available [facility] ([facility]) [address] [place] [address] [address], [place], [address], 05/23/2017 11:19:28 05/21/19 18 05/22/2017 vitam in B12, serum vitamin B12 502 pg/mL 180-91 4 Not Available [facility] ([facility]) [address] [place] [address] [address], [place], [address], 05/23/2017 11:19:28 05/21/19 18 05/22/2017 T4, free, serum thyroxine free (free T4) 0.89 NG/dL 0.58-1 .64 Not Available [facility] ([facility]) [facility] [address], [place], [address], 05/23/2017 11:19:29 05/21/19 18 05/22/2017 TSH, serum or plasm a TSH 1.08 mU/L 0.34-5 .00 Not Available [facility] ([facility]) [address] [place] [address] [address], [place], [address], 05/23/2017 11:19:29 05/21/19 18 05/22/2017 testo stero ne, free + total , serum sex hormone binding globulin (shbg) 42.5 nmol/ L 12.2-1 35.5 STAGE MALE FEMAL E Tanne r Stage I: 26-18 6 nmol/ L 30-17 3 nmol/ L Tanne r Stage II: 22-16 9 nmol/ L 16-12 7 nmol/ L Tanne r Stage III: 13-10 4 nmol/ L 12-98 nmol/ L Tanne r Stage IV: 11-60 nmol/ L 14-15 1 nmol/ L Tanne r Stage V: 11-71 nmol/ L 23-16 5 nmol/ L Not Available [facility] ([facility]) [facility] [address], [place], [address], 05/23/2017 11:19:30 05/21/19 18 05/23/2017 testo stero ne, free + total , serum testosterone , total (female and children) 26.0 NG/dL 10.0-5 2.0 Preme nopau meir 10-52 ng/dL (Grea ter than 18 years ) Postm enopa usal 6-30 ng/dL Not Available [facility] ([facility]) [address] [place] [address] [address], [place], [address], 05/23/2017 11:19:30 05/21/19 18 05/23/2017 testo stero ne, free + total , serum testosterone free, females or children 4.0 pg/mL 1.5-11 .4 Postm enopa usal 0.6-4 .6 pg/mL The chapito ntrat ions of free and bioav ailab le testo stero ne are deriv ed from keyona cm al expre ssion s based on const ants for the micheal ng of testo stero ne to album in and/o r sex hormo ne micheal ng globu olvin. These calcu lated value s may be less accur ate in patie nts with very low album in chapito ntrat ions. Not Available [facility] ([facility]) [facility] [address], [place], [address], 05/23/2017 11:19:30 05/21/19 18 05/22/2017 vitam in D, 25-hy droxy , total , serum vitamin D 25-hydroxy 25.4 NG/mL 30.0-1 00.0 low Inter preta tion of Vitam in D 25 OH: < 20 ng/mL - Defic iency 20 - 29 ng/mL - Insuf ficie ncy 30 - 100 ng/mL - Suffi cienc y > 100 ng/mL - Super -ther apeut ic- toxic ity may occur above this level . Clini jovani corre latio n requi red. Not Available [facility] ([facility]) [address] [facility] [address], [place], [address], 05/23/2017 11:19:30 05/21/19 18 05/21/2017 urina lysis , dipst ick Leukocytes - Not Available Main Of fice [address], [place], [address], 05/21/2017 09:47:45 05/21/19 18 05/21/2017 urina lysis , dipst ick Nitrite negati ve Not Available Main Office [address], [place], [address], 05/21/2017 09:47:45 05/21/19 18 05/21/2017 urina lysis , dipst ick Urobilinogen - Not Available Main Office [address], [place], [address], 05/21/2017 09:47:45 05/21/19 18 05/21/2017 urina lysis , dipst ick Protein - Not Available Main Offic e [address], [place], [address], 05/21/2017 09:47:45 05/21/19 18 05/21/2017 urina lysis , dipst ick pH 5.0 Not Available Main Offic e [address], [place], [address], 05/21/2017 09:47:45 05/21/19 18 05/21/2017 urina lysis , dipst ick Blood - Not Available Main Offic e [address], [place], [address], 05/21/2017 09:47:45 05/21/19 18 05/21/2017 urina lysis , dipst ick Specific Sargents 1.020 Not Available Main O ffice [address], [place], [address], 05/21/2017 09:47:45 05/21/19 18 05/21/2017 urina lysis , dipst ick Ketone - Not Available Main Offic e [address], [place], [address], 05/21/2017 09:47:45 05/21/19 18 05/21/2017 urina lysis , dipst ick Bilirubin - Not Available Main Off ice [address], [place], [address], 05/21/2017 09:47:45 05/21/19 18 05/21/2017 urina lysis , dipst ick Glucose - Not Available Main Offic e [address], [place], [address], 05/21/2017 09:47:45 05/21/19 18 05/21/2017 pregn bianca test, urine HCG negati ve Not Available Main Office [address], [place], [address], 05/21/2017 09:48:14 10/08/19 20 10/10/2019 pap, LB Pap test thin prep Negati ve for Intrae pithel ial Lesion or Malign bianca normal ACCES ELISE #: [id number] Sourc e: Cervi jovani/E ndoce rvica l LMP: [id number] Date Taken : 10/07 Speci men Type: ThinP rep Vial Date Repor shivam: 2019 Clini jovani Data: Last Pap: wnl ([id number]) Cytot ech: Chloé Goss , CT( CP) Date Repor shivam: 2019 Speci men Adequ acy: Satis facto ry for evalu ation Endoc ervic al/tr ansfo rmati on zone compo nent prese nt Gener al Categ oriza tion: NEGAT KAMI FOR INTRA EPITH ELIAL LESIO N OR MALIG AIMEE This speci men has been rell zed by the ThinP rep Imagi ng Syste m, an inter activ e compu ter syste m which yao ts the lab in the scree wally of ThinP rep Pap Test slide s. Follo wing imagi ng, the slide was revie wed by a Cytot echno logis t and/o r Patho logis t. End of Repor t Techn ical servi steve provi ded by Assoc iated Patho logis [employer], [employer], d/b/a [facility], [address] [place] [address] Darrion Zhang MD, Labor atory Direc tor. Case revie wed and diagn osis rende red at Assoc iated Patho logis ts, [employer], d/b/a [facility], [address] [place] [address] Darrion Zhang MD, Labor atory Direc tor. CONFI DENTI AL Not Available [facility]) [address], [place], [address], 10/10/2019 10:41:22 10/08/19 20 10/08/2019 pregn bianca test, urine HCG negati ve Not Available Main Office [address], [place], [address], 10/08/2019 08:45:24 10/08/19 20 10/08/2019 urina lysis , dipst ick Leukocytes - Not Available Main Of fice [address], [place], [address], 10/08/2019 08:45:19 10/08/19 20 10/08/2019 urina lysis , dipst ick Nitrite negati ve Not Available Main Office [address], [place], [address], 10/08/2019 08:45:19 10/08/19 20 10/08/2019 urina lysis , dipst ick Urobilinogen - Not Available Main Office [address], [place], [address], 10/08/2019 08:45:19 10/08/19 20 10/08/2019 urina lysis , dipst ick Protein - Not Available Main Offic e [address], [place], [address], 10/08/2019 08:45:19 10/08/1910/08/2019 urina lysis , dipst ick pH 6.0 Not Available Main Offic e [address], [place], [address], 10/08/2019 08:45:19 10/08/19 20 10/08/2019 urina lysis , dipst ick Blood - Not Available Main Offic e [address], [place], [address], 10/08/2019 08:45:19 10/08/19 20 10/08/2019 urina lysis , dipst ick Specific Sargents 1.015 Not Available Main O ffice [address], [place], [address], 10/08/2019 08:45:19 10/08/19 20 10/08/2019 urina lysis , dipst ick Ketone - Not Available Main Offic e [address], [place], [address], 10/08/2019 08:45:19 10/08/19 20 10/08/2019 urina lysis , dipst ick Bilirubin - Not Available Main Off ice [address], [place], [address], 10/08/2019 08:45:19 10/08/19 20 10/08/2019 urina lysis , dipst ick Glucose - Not Available Main Offic e [address], [place], [address], 10/08/2019 08:45:19 10/08/19 20 10/08/2019 urina lysis , dipst ick Appearance - Not Available Main Of fice [address], [place], [address], 10/08/2019 08:45:19 10/08/19 20 10/08/2019 urina lysis , dipst ick Color - Not Available Main Offic e [address], [place], [address], 10/08/2019 08:45:19 Result Notes None recorded. Procedures Surgical History Date Name Laterality Status Provider Name and Address Organization Details Recorded Time 10/08/19 Date of Last Pap Smear completed [facility], 10/08/2019 08:44:40 Cholecystectomy completed [facility], 05/21/2017 09:26:05 Tonsillectomy completed [facility], 05/21/2017 09:26:22 Imaging Results None recorded. Procedure Notes None recorded. Medical Equipment None Reported. Allergies No known drug allergies Medications Name Sig Start Date Stop Date Status Note LastModified by Organization Details LastModified Time Medrol (Reji) 4 mg tablets in a dose pack Take 1 dose pk as needed by oral route. 020 active Not Available Not Available Not Avai lable Vitamin D2 1,250 mcg (50,000 unit) capsule Take 1 capsule every week by oral route. 018 10/07 completed Not Available Not Available Not Available Contrave 8 mg-90 mg tablet,ext ended release Take 2 tablets twice a day by oral route. 018 10/07 completed Not Available Not Available Not Available Vitals Date Recorded Body height Body mass index (BMI) Body weight Respiratory rate Heart rate Body temperature Systolic blood pressure Diastolic blood pressure Provider Name and Address Organization Details Last Updated DateTime 0 172.72 cm 47.3 kg/m2 221936. 23 g 16 /min 78 /min 97.7 [degF] 131 mm[Hg] 76 mm[Hg] Meredith Garay [facility], 0 08:43:01 Date Recorded Body height Body mass index (BMI) Body weight Heart rate Body temperature Systolic blood pressure Diastolic blood pressure Provider Name and Address Organization Details Last Updated DateTime 8 172.72 cm 45.8 kg/m2 598326. 3 g 81 /min 97.5 [degF] 110 mm[Hg] 82 mm[Hg] [facility], 8 09:37:30 Date Recorded Body height Body mass index (BMI) Body weight Heart rate Body temperature Systolic blood pressure Diastolic blood pressure Systolic blood pressure Diastolic blood pressure Provider Name and Address Organization Details Last Updated DateTime 8 172.72 cm 45.8 kg/m2 481268. 3 g 90 /min 96.8 [degF] 123 mm[Hg] 91 mm[Hg] 122 mm[Hg] 82 mm[Hg] Barbaar Laughlin [facility], 09:43:52 Social History Question Answer Notes LastModified by Organizat ion Details LastModified Time Tobacco Smoking Status Former Smoker Not Available [facility] 01/20/2020 03:20:42 Able To Swim? Yes Information not available 05/21/2017 Accident Related Injury No Information not available 05/21/2017 Do You Have An Advance Directive? No [id number] Information not available 01/20/2020 What Is Your Level Of Alcohol Consumption? Occasional [id number] Information not available 01/20/2020 How Many Years Have You Consumed Alcohol? 18 [id number] Information not available 01/20/2020 Animal Exposure? Yes Informat ion not available 05/21/2017 Are You Currently Sexually Active With Anyone Who Has Traveled (within The Last 12 Weeks) To A Zika-affected Area? No [id number] Information not available 01/20/2020 Do You Wear A Helmet When Biking? No [id number] Information not available 01/20/2020 Are You Blind Or Do You Have Difficulty Seeing? No [id number] Information not available 01/20/2020 What Is Your Level Of Caffeine Consumption? Occasional [id number] Information not available 01/20/2020 How Much Tobacco Do You Chew? None [id number] Information not available 01/20/2020 Concerns About Meeting Basic Needs (food, Housing, Heat, Etc)? No Information not available 05/21/2017 Are You Currently Employed? Yes [id number] Information not available 01/20/2020 Are You Deaf Or Do You Have Serious Difficulty Hearing? No [id number] Information not available 01/20/2020 What Type Of Diet Are You Following? REGULAR [id number] Information not available 01/20/2020 Which Illicit Or Recreational Drugs Have You Used? 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 Yes Information not available 05/21/2017 Have There Been Any Changes To Your Family Or Social Situation? No [id number] Information no t available 01/20/2020 When Did You Quit Smoking? 1-5yearssincel adan [id number] Information not available 01/20/2020 Are There Any Guns Present In Your Home? No [id number] Information not available 01/20/2020 Hard Of Hearing Or Deaf In One Or Both Ears? No Information not available 05/21/2017 Legally Blind In One Or Both Eyes? No Information no t available 05/21/2017 Live Alone Or With Others? With Others Information not available 05/21/2017 Do You Have A Medical Power Of Nanotechnologist? No [id number] Information not available 01/20/2020 What Was The Date Of Your Most Recent Tobacco Screening? 05/28/2017 [id number] Information not available 01/20/2020 How Many Children Do You Have? 1 [id number] Information not available 01/20/2020 Performs Monthly Self-breast Exam? No Information no t available 05/21/2017 Do You Have Any Pets? Yes [id number] Information not available 01/20/2020 Difficulty Reading? No Information not available 05/21/2017 Seat Belts Used Routinely Yes Information not available 05/21/2017 Are You Sexually Active? Yes [id number] Information not available 01/20/2020 Smoke Alarm In Home Yes Information not available 05/21/2017 Do You Have Smoke And Carbon Monoxide Detectors In Your Home? Yes [id number] Information not available 01/20/2020 Are You Passively Exposed To Smoke? No Information no t available 05/21/2017 Are There Any Smokers In Your House? No Information not available 05/21/2017 How Much Tobacco Do You Smoke? No [id number] Information not available 01/20/2020 General Stress Level Medium Information not available 05/21/2017 Sun Exposure Occasional Information not available 05/21/2017 Do You Use Sunscreen Routinely? Yes [id number] Information not available 01/20/2020 TB Risk Low Information no t available 05/21/2017 Has Tobacco Cessation Counseling Been Provided? No [id number] Information not available 01/20/2020 How Many Years Have You Smoked Tobacco? 20 [id number] Information not available 01/20/2020 Difficulty Watching TV? No Information not available 05/21/2017 Sex: Unknown Functional Status Question Answer Note LastModified by Organizat ion Details LastModified Time Do you have difficulty walking or climbing stairs? No [id number] Information not available 01/20/2020 Do you have transportation difficulties? No [id number] Information not available 01/20/2020 Are you able to walk? YESWOREST [id number] Information not available 01/20/2020 Do you have difficulty doing errands alone? No [id number] Information not available 01/20/2020 Are you able to care for yourself? Yes [id number] Information n ot available 01/20/2020 Do you have difficulty dressing or bathing? No [id number] Information not available 01/20/2020 What is your exercise level? Occasional [id number] Information not available 01/20/2020 Mental Status Question Answer Note LastModified by Organization D etails LastModified Time Do you have difficulty concentrating, remembering or making decisions? Yes [id number] Information no t available 01/20/2020 Family History Relationship Description Onset Age of this Age Resolved Age Notes LastModified by Organization Details LastModified Time Mother Family history of malignant neoplasm breast cancer (cause of ) [place] Not available 05/21/2017 09:23:12 Father Diabetes mellitus d[place] Not available 05/21 09:23:36 Father Hypertensive disorder d[place] Not available 05/21 09:23:54 Paternal Grandmother Diabetes mellitus [place] Not available 05/21 09:23:36 Paternal Grandmother Hypertensive disorder [place] Not available 05/21 09:23:54 Paternal Grandmother Heart disease [place] Not available 05/21 09:24:17 Maternal Grandmother Heart disease [place] Not available 05/21 09:24:17 Paternal Uncle Diabetes mellitus d[place] Not available 05/21 09:40:12 Medical History Condition Response Coronary Artery Disease N Gout N Other N Kidney Stones N Blood Diseases N Enlarged Prostate N Hyperthyroidism N Blood Transfusion N Dermatologic Disorders N Depression N COPD N Gestational Diabetes N Anxiety Disorder N Autoimmune disease N Muscle, Joint, or Bone Problems N Obesity N Vision or Eye Problems N Arthritis N Infertility N Polyps N Mental Disorder N Cancer N Varicosities N Stroke N Neurologic/Epilepsy N Headaches N Fibromyalgia N Kidney Disease N Heart Problems N Ear or Hearing Problems N Hospitalizations N Acne N Eating Disorder N Skin Problems N MRSA exposure N Constipation N Heartburn N Art (IVF or FET) N Bladder Problems N Bleeding Disorder N Tuberculosis N AIDS/HIV N G.E.R.D N Asthma N Trauma/Violence N Hepatitis N Pulmonary Embolism N Chronic Ear Infections N Chicken Pox N Autism Spectrum Disorder (ASD) N Thrombophilias N Allergies (Food, seasonal, environmental ) N Colon Cancer N Drug/Latex Allergies/Reactions N Breast Cancer N Lung Disease N Hypothyroidism N Defects or Inherited Disease N Developmental or Behavioral Disorders N Breast Problem N Difficulty Swallowing N Hematologic disorders N Anesthesia Complications N History of STI N Deep Vein Thrombosis N Polycystic ovary syndrome Y Meniere's disease N History of abnormal pap N Endometriosis N High Cholesterol N Liver Disease N Allergies/Hayfever N Kidney Problems N Thyroid Problems N GI Problems N ADD/ADHD N Anemia N Mental Illness N Psychiatric Illness N Diabetes N Ovarian Cancer N Pulmonary (TB, Asthma) N Seizures/Epilepsy N Congestive Heart Failure (CHF) N Hyperlipidemia N Eczema N Diverticulitis N Abuse/Domestic Violence N Depression/ depression N Heart Disease N Hypertension N Pre-Eclampsia N Osteoporosis N Gynecological History Statement/Question Response Abnormal Pap N Flow Heavy Date of LMP 09/27/2019 On BCP's at Conception? N STIs/STDs N HPV Vaccine N Duration of Flow (days) 4 Age at Menarche 14 Current Control Method None Date of Last Colonoscopy Frequency of Cycle (Q days) 28 Sexually Active? Y Menses Monthly Y Date of Last Pap Smear 10/08/2019 Sexual Problems? N LMP Definite Obstetrics History GPAL:G 0 P 0 0 0 0 Past Encounters Encounter ID Performer Location Encounter Start Date Encounter Closed Date Diagnosis/Indication Diagnosis SNOMED-CT Code Diagnosis ICD10 Code Diagnosis Note [id number] Ceasar Husain DO Main Office [address] [place] [address] 05/21/2017 09:01:23 05/21/2017 10:24:05 Gynecologic examination 45567193 Z01.411 pap smear collected Disorder o f menstruation 966938113 N92.5 Body mass index 40+ - severely obese 309854086 Z68.42 labs drawn Female hirsutism 1499515 9 L68.0 Fatigue 90413905 R53.83 Abnormal weight gain 161 544701 R63.5 [id number] Ceasar Husain DO Main Office [address] [place] [address] 05/28/2017 08:56:06 05/28/2017 10:30:23 Obesity 151529176 E66.9 also order for fire fighters dispatcher, pcos nutrition counseling Vitamin D deficiency 347 21818 E55.9 Body mass index 40+ - severely obese 290782166 Z68.42 labs drawn [id number] Ceasar Husain DO Main Office [address] [place] [address] 10/08/2019 08:34:44 10/08/2019 09:31:04 Gynecologic examination 12496472 Z01.411 pap smear collected. pt to schedule screening mammogram at [facility]. 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 f/u 3 months, if tx not helping consider danazol or derm referral. Pruritic rash 48963947 L 28.2 Body mass index 40+ - severely obese 923772620 Z68.42 labs drawn Health Concerns Section Related Observation LastModified by Organization Detai ls LastModified Time None Recorded Concern Status LastModified by Organization Details LastModified Time None Recorded Advance Directives Directive N: Payers Encounter Date Sequence Insurance Name Policy Number Policy Newby Covered Member ID Newby Member ID Guarantor Name 05/21/2017 1 [place] [employer] [place] [employer] [place] [id number] Raman Haskins [id number] 05/28/2017 1 [place] [employer] [place] [id number] Raman Martínez [place] [id number] 10/08/2019 1 [place] [id number] Raman Haskins [id number] Notes Date Note Type Note Provider Name and Address Organization Details Recorded Time 05/21/2017 text/html Annual GYNReport ed bypatient.History: no gynecologic complaints Menstrual cycle:Regular, but sometimes heavy with clots, sometimes light/scant. Urinary symptoms:No hematuria; No incontinence Vulva:No genital lesion Vagina:Normal vaginal discharge Breast:No breast pain; No breast lump; No nipple discharge Sexual complaints:No sexual complaints; No pain during intercourse; Normal libido Menopausal Symptoms:Hot flashes(sometimes) ; nightsweats Psychological symptoms:No depression; No anxiety; No PMDD Preventive measures:Followed with yearly pap smears; Mammogram performed within the past year Patient presents for pap/annual and lab work. She would like her hormones checked. She c/o fatigue, weight gain, facial hair. She does have a history of PCOS. DO [address], [place], [address], [facility], 05/21/2017 21:38:05 05/28/2017 text/html Patient presents for lab follow-up of: obesity. all wnl except low vit d. DO [address], [place], [address], [facility], 05/30/2017 19:00:31 10/08/2019 text/html Annual GYNReport ed bypatient.History: no gynecologic complaints; patient reports she gets a severe red and itchy rash on her neck right before her period which goes away during period. This happens monthly. Menstrual cycle:Normal menses Urinary symptoms:No hematuria; No incontinence Vulva:No genital lesion Vagina:Normal vaginal discharge Breast:No breast pain; No breast lump; No nipple discharge Current Contraception:Dm h control not practiced Sexual complaints:No sexual complaints; No pain during intercourse; Normal libido Menopausal Symptoms:No menopausal symptoms; Normal vaginal lubrication Psychological symptoms:No depression; No anxiety; No PMDD Preventive measures:Followed with yearly pap smears Patient presents for annual Ceasar Husain DO [address], [place], [address], [place] [facility], 01/04/2020 13:52:20 OBGyn Episode No OBEpisode recorded.
[2024-07-08 08:01] LABS: Hemoglobin A1C 5.1 % (4.0-6.0)
[2024-07-08 08:11] LABS: Albumin Level 4.1 g/dl (3.5-5.0); Chloride 107 mmol/L (98-107); Potassium 4.5 mmoL/L (3.5-5.1); Sodium 140 mmol/L (136-145)
[2024-07-08 08:13] LABS: Blood Urea Nitrogen 11 mg/dl (7-17); Estimated Glomerular Filt Rate 77 ml/min (>60); GFR (African American) 93 ML/MIN (>60)
[2024-07-08 08:14] LABS: Alanine Aminotransferase 30 U/L (12-78); Albumin/Globulin Ratio 1.6 (1.1-1.8); Alkaline Phosphatase 96 U/L (38-126); Anion Gap 11.5 mEq/L (5-15); Aspartate Amino Transferase 28 U/L (14-36); Bilirubin,Total 0.3 mg/dl (0.2-1.3); Carbon Dioxide 26 mmol/L (22.0-30.0); Chol/HDL Ratio 4.1 (1-3.5); Cholesterol 138 mg/dl (140-200); Globulin 2.5 g/dL (1.3-3.2); Glucose 89 mg/dl (74-100); HDL Cholesterol 34 mg/dl (40-60); Total Protein,Serum 6.6 g/dl (6.3-8.2); Triglycerides 156 mg/dl (30-150); VLDL Cholesterol 31 mg/dL (0-40)
== END 2024-07-08 23:59 | disposition home or self-care (01) ==
LOC: LAB 07:36
PROVIDERS: PCP Family Medicine; Visit Provider Family Medicine
DX: Z00.00 Encounter for general adult medical examination without abnormal findings (principal); E11.9 Type 2 diabetes mellitus without complications; Z79.85 Long-term (current) use of injectable non-insulin antidiabetic drugs; Z87.891 Personal history of nicotine dependence
CPT/HCPCS: 36415; 80053; 80061; 83036

== ENCOUNTER 2024-10-09 16:54 | Outpatient (CLI) | payer OTHER, SELFPAY ==
--- OUTSIDE RECORDS SUMMARY | 2024-10-09 16:57 | XMS_ITS | Encounter Summary ---
Author Organization Healthcare Address [address] [place] [address] Care Team Providers Care Autoglazier Name Role Phone Priscila Caldera DO Primary Care Provider [phone] Encounter Details Date Type Department Care Team (Late st Contact Info) Description 03/30/2011 Orders Only External Location [address] [place] [address] Provider, External Social History Tobacco Use Types Packs/Day Years Used Date Smoking Tobacco: Never Assessed Comments Unknown Sex and Gender Information Value Date Recorded Sex Assigned at Not on file Legal Sex Female 10:58 AM EST Gender Identity Not on file Sexual Orientation Not on file documented as of this encounter Plan of Treatment Not on file documented as of this encounter Procedures Procedure Name Priority Date/Time Associated Diagnosis Comments US BREAST OUTSIDE IMAGES 03/30/2011 2:05 PM EST documented in this encounter Results * US BREAST OUTSIDE IMAGES (03/30/2011 2:05 PM EST) Anatomical Region Laterality Modality Breast Mammography 03/30/2011 2:05 PM EST us External Provider IMG BI PROCEDURES Final Result documented in this encounter Visit Diagnoses Not on filedocumented in this encounter Care Teams Autoglazier Relationship Specialty Start Date End Date Priscila Caldera DO [address] [place] [address] PCP - General 03/30/22 documented as of this encounter
--- OUTSIDE RECORDS SUMMARY | 2024-10-09 16:57 | XMS_ITS | Clinical Summary ---
Author Organization [facility] Address [address] [place] [address] Care Team Providers Care Online Affiliate Marketing Manager Name Role Phone Priscila Caldera DO Primary Care Provider [phone] Family History Medical History Relation Name Comments Breast cancer Mother Relation Name Status Comments Mother Social History Tobacco Use Types Packs/Day Years Used Date Smoking Tobacco: Former Cigarettes Smokeless Tobacco: Never Tobacco Cessation:Counseling Given: Not Answered Comments No Sex and Gender Information Value Date Recorded Sex Assigned at Not on file Legal Sex Female 10:58 AM EST Gender Identity Not on file Sexual Orientation Not on file Plan of Treatment Health Maintenance Due Date Last Done Comments [facility]-Depression Screening 1977 [facility]-HIV Screening 1977 [facility]-Hepatitis C Screening 1977 [facility]-/Child/Adol SDOH Screenings 1977 [facility]- SDOH Screenings 12/19/1995 [facility]-Adult SDOH Screenings 12/19/1995 [facility]-Hepatitis B Vaccines (1 of 3 - 19+ 3-dose series) 1996 [facility]-Pap Smear 1998 [facility]-Cervical Cancer Screening 12/19/2007 [facility]-HPV/Cotest 12/19/2007 [facility]-DTaP,Tdap,and Td Vaccine s (2 - Td or Tdap) 10/21/2022 10/21/2012 CT Colonography 2022 Colonoscopy 2022 FIT-DNA 2022 FIT 2022 FOBT 2022 Sigmoidoscopy 2022 [facility]-Colorectal Cancer Screening 2022 [id number] Vaccine () 11/25/2023 01/25/2021, 04/30/2020, 03/30/2020 [facility]-Influenza Vaccine (#1) 2024 [facility]-Zoster Vaccines (1 of 2) 12/19/2027 HPV Vaccines Aged Out No longer eligi ble based on patient's age to complete this topic [facility]-HIB Vaccines Aged Out No longer e ligible based on patient's age to complete this topic [facility]-Hepatitis A Vaccines Aged Out No longer eligible based on patient's age to complete this topic [facility]-IPV Vaccines Aged Out No longer e ligible based on patient's age to complete this topic [facility]-Pneumococcal Vaccine: Pediatrics (0 to 5 Years) and At-Risk Patients (6 to 49 Years) Aged Out No longer eligible b ased on patient's age to complete this topic [facility]-Rotavirus Vaccines Aged Out No lo nger eligible based on patient's age to complete this topic Insurance [facility] Care Teams Online Affiliate Marketing Manager Relationship Specialty Start Date End Date Priscila Caldera DO [address] [place] [address] PCP - General 03/30/22
--- OUTSIDE RECORDS SUMMARY | 2024-10-09 16:57 | XMS_ITS | Data Portability ---
Author Organization [facility],, Main Office Address [address] [place] [address] Assessment Encounter Date Assessment Date Assessment LastModified [...] a year unless there are new symptoms. [email or web address] Not available 10/08/2019 08:42:46 Plan of Treatment Reminders Order Date Submit Date Provider Last Modified By Organization Details Last Modified Time Details Appointments None recorded. Lab urinalysis , dipstick 2019 020 YEISON Main Office, [address], [place], [address], 0 09:44:48 test, urine 2019 020 YEISON Main Office, [address], [place], [address], 0 09:44:31 urinalysis , dipstick 2017 018 aclaxon Main Office, [address], [place], [address], 8 10:51:00 test, urine 2017 018 aclaxon Main Office, [address], [place], [address], 8 10:51:00 Referral None recorded. Procedures None recorded. Surgeries None recorded. Imaging None recorded. Medication Orders Medrol (Reji) 4 mg tablets in a dose pack 2019 020 INTERFACE [facility] [address], [address] [place] [address], [address], 0 09:29:12 Contrave 8 mg-90 mg tablet,ext ended release 2017 018 [email or web address] 4 [facility], [address] [place] [address], [address], 0 08:43:18 Vitamin D2 1,250 mcg (50,000 unit) capsule 2017 018 [email or web address] 4 [facility] [address], [address] [place] [address], [id number], 0 08:43:32 Patient TargetsNo targets recorded. Patient Instructions Encounter Date Encounter Id Patient Instructions Last Modified By Organization Details Last Modified Time 05/21/2017 [id number] abnormal weight gain: care instructions [email or web address] Not available 05/21/2017 10:51:03 05/28/2017 [id number] When You Want to Lose Weight: Care Instructions aclaxon Not available 05/28/2017 09:29:06 10/08/2019 [id number] body mass index: care instructions atul Not available 01/04/2020 13:52:13 learning about healthy weight atul Not available 01/04/2020 13:52:13 Patient was evaluated and managed with Dr Husain Distinct and separate issues addressed beyond annual gynecology exam. Added 35-45 minutes on to visit. Patient's questions answered, concerns addressed. atul Not available 01/04/2020 13:51:14 Reason for Referral [...] which yao ts the lab in the [facility] of ThinP rep Pap Test slide s. Follo wing imagi ng, the slide was revie wed by a [employer] logis t and/o r Patho logis t. Techn ical servi steve provi ded by: [facility] ts, [facility] d/b/a PathG roup [address], [address] [place] [address] Prabhu pizarro M.D., [facility] Case revie wed and diagn osis rende red at: [facility] ts [address], [address] [place] [address] Prabhu pizarro M.D., [facility] ----- ----- ----- ----- ----- ----- ----- ----- ----- ----- ----- ----- Not Available [facility] ([facility]) [facility] [address], [place], [address], 05/23/2017 10:05:17 05/21/19 18 05/22/2017 lipid panel , serum cholesterol 166 mg/dL 75-200 Not Available [facility] ([facility]) [address] [place] [address] [address], [place], [address], 05/23/2017 11:19:25 05/21/19 18 05/22/2017 lipid panel , serum triglyceride s 140 mg/dL <150 Not Available [facility] ([facility]) [address] [place] [address] [address], [place], [address], 05/23/2017 11:19:25 05/21/19 18 05/22/2017 lipid panel , serum HDL cholesterol 35 mg/dL >39 low Not Available [facility] ([facility]) [address] [place] [address] [address], [place], [address], 05/23/2017 11:19:25 05/21/19 18 05/22/2017 lipid panel , serum cholesterol / HDL ratio 4.74 ratio 0.00-4 .44 high Not Available [facility] ([facility]) [address] [place] [address] [address], [place], [address], 05/23/2017 11:19:25 05/21/19 18 05/22/2017 lipid panel , serum non-HDL cholesterol 131 mg/dL <130 high Not Available [facility] ([facility]) [address] [place] [address] [address], [place], [address], 05/23/2017 11:19:25 05/21/19 18 05/22/2017 lipid panel , serum LDL cholesterol (calculation ) 103 mg/dL <130 LDL Kandy stero l Level s Less than 100 mg/dL Optim al 100 to 129 mg/dL Near Optim al/ Above Optim al 130 to 159 mg/dL Borde rline High 160 to 189 mg/dL High 190 mg/dL and above Very High * Categ ories as recom arlyn d by the 2003 ATPII I guide lines Not Available [facility] ([facility]) [address], [place], [address], 05/23/2017 11:19:25 05/21/19 18 05/22/2017 lipid panel [...] eleanor ed patie nt manag ement algor ithm, betwe en 30% and 50% reduc tion. If you would like to have your patie nts Cardi ovasc ular Risk Asses sment class ifica tion (per 2012 AHA/A CC guide lines ) 10-ye ar ASCVD score , pleas e order the ASCVD Advan remigio Lipid Profi le (LIPC VD). Not Available [facility] ([facility]) [address] [place] [address] [address], [place], [address], 05/23/2017 11:19:25 05/21/19 18 05/22/2017 CBC w/ auto diff WBC 11.1 K/uL 3.8-11 .5 E ffect kami 03/05 New WBC Count Refer ence Range for Adult Males and Femal es: 3.8-1 1.5 K/uL Previ ous WBC Count Refer ence Range for Adult Males and Femal es: 3.8-1 2.8 K/uL Not Available [facility] ([facility]) [address] [place] [address] [address], [place], [address], 05/23/2017 11:19:26 05/21/19 18 05/22/2017 CBC w/ auto diff red blood cell count (RBC) 4.63 M/mm3 3.60-5 .30 E ffect kami 2016 New Red Blood Count Refer ence Range for Adult Femal es: 3.6-5 .3 M/mm3 Previ ous Red Blood Count Refer ence Range for Adult Femal es: 3.7-5 .1 M/mm3 Not Available [facility] ([facility]) [address] [place] [address] [address], [place], [address], 05/23/2017 11:19:26 05/21/19 18 05/22/2017 CBC w/ auto diff hemoglobin (HGB) 13.9 gm/dL 12.0-1 6.0 Not Available [facility] ([facility]) [address] [place] [address] [address], [place], [address], 05/23/2017 11:19:26 05/21/19 18 05/22/2017 CBC w/ auto diff hematocrit (HCT) 43.6 % 37.4-4 8.3 Not Available [facility] ([facility]) [address] [place] [address] [address], [place], [address], 05/23/2017 11:19:26 05/21/19 18 05/22/2017 CBC w/ auto diff MCV 94.2 fL 81.0-1 02.0 Not Available [facility] ([facility]) [address] [place] [address] [address], [place], [address], 05/23/2017 11:19:26 05/21/19 18 05/22/2017 CBC w/ auto diff MCH 30.0 pg 26.9-3 5.0 Not Available [facility] ([facility]) [address] [place] [address] [address], [place], [address], 05/23/2017 11:19:26 05/21/19 18 05/22/2017 CBC w/ auto diff MCHC 31.9 g/dL 30.4-3 4.8 Not Available [facility] ([facility]) [address] [place] [address] [address], [place], [address], 05/23/2017 11:19:26 05/21/19 18 05/22/2017 CBC w/ auto diff RDW 46.5 fL 38.6-5 3.8 Not Available [facility] ([facility]) [address] [place] [address] [address], [place], [address], 05/23/2017 11:19:26 05/21/19 18 05/22/2017 CBC w/ auto diff platelet count 220 K/cum m 137-39 7 Not Available [facility] ([facility]) [address] [place] [address] [address], [place], [address], 05/23/2017 11:19:26 05/21/19 18 05/22/2017 CBC w/ auto diff neutrophils automated 66.5 % 41.0-7 7.0 Not Available [facility] ([facility]) [address] [place] [address] [address], [place], [address], 05/23/2017 11:19:26 05/21/19 18 05/22/2017 CBC w/ auto diff lymphocytes automated 24.6 % 14.0-4 8.0 Not Available [facility] ([facility]) [address] [place] [address] [address], [place], [address], 05/23/2017 11:19:26 05/21/19 18 05/22/2017 CBC w/ auto diff monocytes automated 5.2 % 4.0-13 .0 Not Available [facility] ([facility]) [address] [place] [address] [address], [place], [address], 05/23/2017 11:19:26 05/21/19 18 05/22/2017 CBC w/ auto diff eosinophils automated 2.8 % 1.0-8. 0 Not Available [facility] ([facility]) [address] [place] [address] [address], [place], [address], 05/23/2017 11:19:26 05/21/19 18 05/22/2017 CBC w/ auto diff basophils automated 0.4 % 0.0-1. 5 Not Available [facility] ([facility]) [address] [place] [address] [address], [place], [address], 05/23/2017 11:19:26 05/21/19 18 05/22/2017 CBC w/ auto diff immature granulocyte automated 0.5 % 0.0-1. 0 Not Available [facility] ([facility]) [address] [place] [address] [address], [place], [address], 05/23/2017 11:19:26 05/21/19 18 05/22/2017 CMP, serum or plasm a sodium 139 mEq/L 134-14 5 Not Available [facility] ([facility]) [address] [place] [address] [address], [place], [address], 05/23/2017 11:19:26 05/21/19 18 05/22/2017 CMP, serum or plasm a potassium 3.9 mEq/L 3.4-5. 4 Not Available [facility] ([facility]) [address] [place] [address] [address], [place], [address], 05/23/2017 11:19:26 05/21/19 18 05/22/2017 CMP, serum or plasm a chloride 103 mEq/L 97-109 Not Available [facility]) [address] [place] [address] Dr [address], [place], [address], 05/23/2017 11:19:26 05/21/19 18 05/22/2017 CMP, serum or plasm a CO2 22 mEq/L 22-32 Not Available [facility]) [address] [place] [address] [address], [place], [address], 05/23/2017 11:19:26 05/21/19 18 05/22/2017 CMP, serum or plasm a glucose 92 mg/dL 65-99 Ef fecti ve 2016* New GLU Refer ence Range : 65-99 mg/dL Previ ous GLU Refer ence Range : 65-10 5 mg/dL Not Available [facility] ([facility]) [address] [place] [address] [address], [place], [address], 05/23/2017 11:19:26 05/21/19 18 05/22/2017 CMP, serum or plasm a BUN 14 mg/dL 5-26 Not Available [facility] ([facility]) [address] [place] [address] [address], [place], [address], 05/23/2017 11:19:26 05/21/19 18 05/22/2017 CMP, serum or plasm a creatinine 0.8 mg/dL 0.5-1. 5 Not Available [facility] ([facility]) [address] [place] [address] [address], [place], [address], 05/23/2017 11:19:26 05/21/19 18 05/22/2017 CMP, serum or plasm a calcium 9.4 mg/dL 8.5-10 .3 Not Available [facility] ([facility]) [address] [place] [address] [address], [place], [address], 05/23/2017 11:19:26 05/21/19 18 05/22/2017 CMP, serum or plasm a protein 6.5 g/dL 6.1-8. 3 Not Available [facility] ([facility]) [address] [place] [address] Dr [address], [place], [address], 05/23/2017 11:19:26 05/21/19 18 05/22/2017 CMP, serum or plasm a albumin 4.6 g/dL 3.7-5. 2 Not Available [facility] ([facility]) [address] [place] [address] Dr [address], [place], [address], 05/23/2017 11:19:26 05/21/19 18 05/22/2017 CMP, serum or plasm a alkaline phosphatase 90 IU/L 38-126 Not Available [facility] ([facility]) [address] [place] [address] [address], [place], [address], 05/23/2017 11:19:26 05/21/19 18 05/22/2017 CMP, serum or plasm a ALT (SGPT) 21 IU/L 7-52 Not Available [facility]) [address] [place] [address] Dr [address], [place], [address], 05/23/2017 11:19:26 05/21/19 18 05/22/2017 CMP, serum or plasm a AST (SGOT) 16 IU/L 13-39 Not Available [facility] ([facility]) [address] [place] [address] Dr [address], [place], [address], 05/23/2017 11:19:26 05/21/19 18 05/22/2017 CMP, serum or plasm a bilirubin, total 0.4 mg/dL 0.2-1. 5 Not Available [facility] [address] [place] [address] Dr [address], [place], [address], 05/23/2017 11:19:26 05/21/19 18 05/22/2017 CMP, serum or plasm a A/G ratio 2.4 mg/dL 1.1-2. 5 Not Available [facility]) [address] [place] [address] Dr [address], [place], [address], 05/23/2017 11:19:26 05/21/19 18 05/22/2017 GFR, estim ated (eGFR ), serum GFR/black >60 mL/mi n/1.7 3m2 >60 Not Available [facility]) [address] [place] [address] [address], [place], [address], 05/23/2017 11:19:27 05/21/19 18 05/22/2017 GFR, estim ated (eGFR ), serum GFR/white >60 mL/mi n/1.7 3m2 >60 Chron ic Kidne y Disea se: Less than 60 ml/mi n/1.7 3 squar e meter s End Stage Renal Disea se: Less than 15 ml/mi n/1.7 3 squar e meter s Not Available [facility]) [address] [place] [address] [address], [place], [address], 05/23/2017 11:19:27 05/21/19 18 05/22/2017 proge stero [...] 19.41 - 45.30 Not Available [facility] ([facility]) [address] [place] [address] Dr [address], [place], [address], 05/23/2017 11:19:27 05/21/19 18 05/22/2017 FSH (foll icle- stimu latin g hormo ne), serum FSH 4.75 mIU/m L FSH Refer ence Range Males : 1.27 - 19.26 Femal es: Mid-F ollic ular Phase : 3.85 - 8.78 Mid-C ycle Peak: 4.54 - 22.51 Mid-L uteal Phase : 1.79 - 5.12 Postm enopa usal: 16.74 - 113.5 9 Not Available [facility] ([facility]) [address] [place] [address] [address], [place], [address], 05/23/2017 11:19:27 05/21/19 18 05/22/2017 estra diol, serum estradiol 42 pg/mL ESTRA DIOL REFER ENCE RANGE Male: <20 - 47 pg/ml Femal e: Post Menop ausal <20 - 40 pg/ml Mid-f ollic ular phase 27 - 122 pg/ml Mid-l uteal phase 49 - 291 pg/ml Jackelyn- ovula tory phase 95 - 433 pg/ml Not Available [facility] ([facility]) [address] [place] [address] Dr [address], [place], [address], 05/23/2017 11:19:28 05/21/19 18 05/22/2017 vitam in B12, serum vitamin B12 502 pg/mL 180-91 4 Not Available [facility] ([facility]) [address] [place] [address] Dr [address], [place], [address], 05/23/2017 11:19:28 05/21/19 18 05/22/2017 T4, free, serum thyroxine free (free T4) 0.89 NG/dL 0.58-1 .64 Not Available [facility] ([facility]) [address] [place] [address] Dr [address], [place], [address], 05/23/2017 11:19:29 05/21/19 18 05/22/2017 TSH, serum or plasm a TSH 1.08 mU/L 0.34-5 .00 Not Available [facility] ([facility]) [address] [place] [address] Dr [address], [place], [address], 05/23/2017 11:19:29 05/21/19 18 05/22/2017 testo stero [...] L 23-16 5 nmol/ L Not Available [facility] ([facility]) [address] [place] [address] Dr [address], [place], [address], 05/23/2017 11:19:30 05/21/19 18 05/23/2017 testo stero ne, free + total , serum testosterone , total (female and children) 26.0 NG/dL 10.0-5 2.0 Preme nopau meir 10-52 ng/dL (Grea ter than 18 years ) Postm enopa usal 6-30 ng/dL Not Available [facility] ([facility]) [address] [place] [address] Dr [address], [place], [address], 05/23/2017 11:19:30 05/21/19 18 05/23/2017 testo stero [...] in chapito ntrat ions. Not Available [facility] ([facility]) [facility] [address], [place], [address], 05/23/2017 11:19:30 05/21/19 18 05/22/2017 vitam in [...] latio n requi red. Not Available [facility] ([facility]) [facility] [address], [place], [address], 05/23/2017 11:19:30 05/21/19 18 05/21/2017 urina lysis , dipst ick Leukocytes - Not Available Main Of fice [address], [place], [address], 05/21/2017 09:47:45 05/21/19 18 05/21/2017 urina lysis , dipst ick Nitrite negati ve Not Available Main Office [address], [place], [address], 05/21/2017 09:47:45 05/21/19 18 05/21/2017 urina lysis , dipst ick Urobilinogen - Not Available Main Office [address], [place], [address], 05/21/2017 09:47:45 05/21/19 18 05/21/2017 urina lysis , dipst ick Protein - Not Available Main Offic e [address], [place], [address], 05/21/2017 09:47:45 05/21/19 18 05/21/2017 urina lysis , dipst ick pH 5.0 Not Available Main Offic e [address], [place], [address], 05/21/2017 09:47:45 05/21/19 18 05/21/2017 urina lysis , dipst ick Blood - Not Available Main Offic e [address], [place], [address], 05/21/2017 09:47:45 05/21/19 18 05/21/2017 urina lysis , dipst ick Specific Caldwell 1.020 Not Available Main O ffice [address], [place], [address], 05/21/2017 09:47:45 05/21/19 18 05/21/2017 urina lysis , dipst ick Ketone - Not Available Main Offic e [address], [place], [address], 05/21/2017 09:47:45 05/21/19 18 05/21/2017 urina lysis , dipst ick Bilirubin - Not Available Main Off ice [address], [place], [address], 05/21/2017 09:47:45 05/21/19 18 05/21/2017 urina lysis , dipst ick Glucose - Not Available Main Offic e [address], [place], [address], 05/21/2017 09:47:45 05/21/19 18 05/21/2017 pregn bianca test, urine HCG negati ve Not Available Main Office [address], [place], [address], 05/21/2017 09:48:14 10/08/19 20 10/10/2019 pap, LB Pap test thin prep Negati ve for Intrae pithel ial Lesion or Malign bianca normal ACCES ELISE #: [id number] [facility] e: Cervi jovani/E ndoce rvica l LMP: [id number] Date Taken : 10/07 Speci men [...] provi ded by [facility]is [employer] [place], d/b/a [facility] [place], [address] [place] [address] Darrion Zhang MD, Labor atory Direc tor. Case revie wed and diagn osis rende red [facility], d/b/a Path[facility]ancy [facility]mos, [address] , [place] [address] Darrion Zhang MD, Labor atory Dire tor. CONFI DENTI AL Not Available [facility] [address], [place], [address], 10/10/2019 10:41:22 10/08/19 20 10/08/2019 pregn bianca test, urine HCG negati ve Not Available Main Office [address], [place], [address], 10/08/2019 08:45:24 10/08/1910/08/2019 urina lysis , dipst ick Leukocytes - Not Available Main Of fice [address], [place], [address], 10/08/2019 08:45:19 10/08/19 20 10/08/2019 urina lysis , dipst ick Nitrite negati ve Not Available Main Office [address], [place], [address], 10/08/2019 08:45:19 10/08/19 20 10/08/2019 urina lysis , dipst ick Urobilinogen - Not Available Main Office [address], [place], [address], 10/08/2019 08:45:19 10/08/19 20 10/08/2019 urina lysis , dipst ick Protein - Not Available Main Offic e [address], [place], [address], 10/08/2019 08:45:19 10/08/1910/08/2019 urina lysis , dipst ick pH 6.0 Not Available Main Offic e [address], [place], [address], 10/08/2019 08:45:19 10/08/1912 1010/08/2019 urina lysis , dipst ick Blood - Not Available Main Offic e [address], [place], [address], 10/08/2019 08:45:19 10/08/19 20 10/08/2019 urina lysis , dipst ick Specific [place]dwell 1.015 Not Available Main O ffice [address], [place], [address], 10/08/2019 08:45:19 10/08/19 20 10/08/2019 urina lysis , dipst ick Ketone - Not Available Main Offic e [address], [place], [address], 10/08/2019 08:45:19 10/08/19 20 10/08/2019 urina lysis , dipst ick Bilirubin - Not Available Main Off ice [address], [place], [address], 10/08/2019 08:45:19 10/08/1910/08/2019 urina lysis , dipst ick Glucose - Not Available Main Offic e [address], [place], [address], 10/08/2019 08:45:19 10/08/19 20 10/08/2019 urina lysis , dipst ick Appearance - Not Available Main Of fice [address], [place], [address], 10/08/2019 08:45:19 10/08/1910/08/2019 urina lysis , dipst ick Color - Not Available Main Offic e [address], [place], [address], 10/08/2019 08:45:19 Result Notes None recorded. Procedures Surgical History Date Name Laterality Status Provider Name and Address Organization Details Recorded Time 10/08/19 Date of Last Pap Smear completed Meredith Garay [facility], 10/08/2019 08:44:40 Cholecystectomy completed [facility], 05/21/2017 09:26:05 Tonsillectomy completed [facility], 05/21/2017 09:26:22 Imaging Results None recorded. [...] tablets twice a day by oral route. 10/07 completed Not Available Not Available Not Available Vitals Date Recorded Body height Body mass index (BMI) Body weight Heart rate Body temperature Systolic And Diastolic Provider Name and Address Organization Details Last Updated DateTime 8 172.72 cm 45.8 kg/m2 364176. 3 g 81 /min 97.5 [degF] 110/82 mm[Hg] [facility], 8 09:37:30 Date Recorded Body height Body mass index (BMI) Body weight Heart rate Body temperature Systolic And Diastolic Systolic And Diastolic Provider Name and Address Organization Details Last Updated DateTime 8 172.72 cm 45.8 kg/m2 197394. 3 g 90 /min 96.8 [degF] 123/91 mm[Hg] 122/82 mm[Hg] [facility], 8 09:43:52 Date Recorded Body height Body mass index (BMI) Body weight Respiratory rate Heart rate Body temperature Systolic And Diastolic Provider Name and Address Organization Details Last Updated DateTime 0 172.72 cm 47.3 kg/m2 448679. 23 g 16 /min 78 /min 97.7 [degF] 131/76 mm[Hg] [facility], 0 08:43:01 Social History Question Answer Notes LastModified by Organizat ion Details LastModified Time Tobacco Smoking Status Former Smoker Not Available [facility] 01/20/2020 03:20:42 Able To Swim? Yes Information not available 05/21/2017 Accident Related Injury No Information not available 05/21/2017 Do You Have An Advance Directive? No [id number] Information not available 01/20/2020 How Many Years Have You Consumed Alcohol? 18 [id number] Information not available 01/20/2020 Animal Exposure? Yes Informat ion not available 05/21/2017 Are You Currently Sexually Active With Anyone Who Has Traveled (within The Last 12 Weeks) To A Zika-affected Area? No [id number] Information not available 01/20/2020 Do You Wear A Helmet When Biking? No [id number] Information not available 01/20/2020 Are You Blind Or Do You Have Difficulty Seeing? No [id number] Information not available 01/20/2020 What Is Your Level Of Caffeine Consumption? Occasional [id number] Information not available 01/20/2020 How Much Tobacco Do You Chew? None [id number] Information not available 01/20/2020 Concerns About Meeting Basic Needs (food, Housing, Heat, Etc)? No Information not available 05/21/2017 Are You Deaf Or Do You Have Serious Difficulty Hearing? No [id number] Information not available 01/20/2020 What Type Of Diet Are You Following? REGULAR [id number] Information not available 01/20/2020 Which Illicit Or Recreational Drugs Have You Used? None [id number] Information not available 01/20/2020 Education 2 Year College Informatio n not available 05/21/2017 Family History Of Heart Disease? Yes Information not available 05/21/2017 Have There Been Any Changes To Your Family Or Social Situation? No [id number] Information no t available 01/20/2020 When Did You Quit Smoking? 1-5yearssincel astciyair [id number] Information not available 01/20/2020 Are There Any Guns Present In Your Home? No [id number] Information not available 01/20/2020 Hard Of Hearing Or Deaf In One Or Both Ears? No Information not available 05/21/2017 Legally Blind In One Or Both Eyes? No Information no t available 05/21/2017 Live Alone Or With Others? With Others Information not available 05/21/2017 Do You Have A Medical Power Of Freight Team Associate? No [id number] Information not available 01/20/2020 What Was The Date Of Your Most Recent Tobacco Screening? 05/28/2017 [id number] Information not available 01/20/2020 How Many Children Do You Have? 1 [id number] Information not available 01/20/2020 Performs Monthly Self-breast Exam? No Information no t available 05/21/2017 Do You Have Any Pets? Yes [id number] Information not available 01/20/2020 Difficulty Reading? No Information not available 05/21/2017 Seat Belts Used Routinely Yes Information not available 05/21/2017 Are You Sexually Active? Yes [id number] Information not available 01/20/2020 Smoke Alarm In Home Yes Information not available 05/21/2017 Do You Have Smoke And Carbon Monoxide Detectors In Your Home? Yes [id number] Information not available 01/20/2020 Are You Passively Exposed To Smoke? No Information no t available 05/21/2017 Are There Any Smokers In Your House? No Information not available 05/21/2017 How Much Tobacco Do You Smoke? No [id number] Information not available 01/20/2020 General Stress Level Medium Information not available 05/21/2017 Sun Exposure Occasional Information not available 05/21/2017 Do You Use Sunscreen Routinely? Yes [id number] Information not available 01/20/2020 TB Risk Low Information no t available 05/21/2017 Has Tobacco Cessation Counseling Been Provided? No [id number] Information not available 01/20/2020 How Many Years Have You Smoked Tobacco? 20 [id number] Information not available 01/20/2020 Difficulty Watching TV? No Information not available 05/21/2017 Do You Have Difficulty Walking Or Climbing Stairs? No [id number] Information not available 01/20/2020 Sex: Unknown Functional Status Question Answer Note LastModified by Organizat ion Details LastModified Time What is your level of alcohol consumption? Occasional [id number] Information not available 01/20/2020 Are you currently employed? Yes [id number] Information not available 01/20/2020 Do you have transportation difficulties? No [id number] Information not available 01/20/2020 Are you able to walk? YESWOREST [id number] Information not available 01/20/2020 Do you have difficulty doing errands alone? No [id number] Information not available 01/20/2020 Are you able to care for yourself? 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 No [id number] Information not available 01/20/2020 What is your exercise level? Occasional [id number] Information not available 01/20/2020 Mental Status Question Answer Note LastModified by Organization D etails LastModified Time Do you have difficulty concentrating, remembering or making decisions? Yes [id number] Information no t available 01/20/2020 Family History [...] History Condition Response Coronary Artery Disease N Other N Gout N Kidney Stones N Blood Diseases N Hyperthyroidism N Enlarged Prostate N Blood Transfusion N Dermatologic Disorders N Depression N COPD N Gestational Diabetes N Anxiety Disorder N Muscle, Joint, or Bone Problems N Autoimmune disease N Obesity N Vision or Eye Problems N Arthritis N Polyps N Infertility N Mental Disorder N Cancer N Varicosities N Stroke N Neurologic/Epilepsy N Headaches N Fibromyalgia N Kidney Disease N Heart Problems N Ear or Hearing Problems N Hospitalizations N Acne N Skin Problems N Eating Disorder N MRSA exposure N Heartburn N Constipation N Art (IVF or FET) N Bladder Problems N Bleeding Disorder N Tuberculosis N AIDS/HIV N G.E.R.D N Asthma N Trauma/Violence N Hepatitis N Pulmonary Embolism N Chronic Ear Infections N Chicken Pox N Autism Spectrum Disorder (ASD) N Thrombophilias N Allergies (Food, seasonal, environmental ) N Colon Cancer N Drug/Latex Allergies/Reactions N Breast Cancer N Lung Disease N Hypothyroidism N Developmental or Behavioral Disorders N Defects or Inherited Disease N Breast Problem N Difficulty Swallowing N Hematologic disorders N Anesthesia Complications N History of STI N Deep Vein Thrombosis N Polycystic ovary syndrome Y Meniere's disease N History of abnormal pap N Endometriosis N High Cholesterol N Liver Disease N Allergies/Hayfever N Kidney Problems N Thyroid Problems N GI Problems N ADD/ADHD N Anemia N Mental Illness N Psychiatric Illness N Ovarian Cancer N Diabetes N Pulmonary (TB, Asthma) N Seizures/Epilepsy N Congestive Heart Failure (CHF) N Hyperlipidemia N Eczema N Diverticulitis N Abuse/Domestic Violence N Depression/ depression N Heart Disease N Pre-Eclampsia N Hypertension N Osteoporosis N Gynecological History Statement/Question Response [...] Code Diagnosis ICD10 Code Diagnosis Note [id number] ANNE Michael Main Office [address] [place] [address] 05/21/2017 09:01:23 05/21/2017 10:24:05 Gynecologic examination 12444217 Z01.411 pap smear collected Disorder o f menstruation 662202903 N92.5 Body mass index 40+ - severely obese 480934015 Z68.42 labs drawn Female hirsutism 5873996 9 L68.0 Fatigue 33754663 R53.83 Abnormal weight gain 161 361157 R63.5 5377 ANNE Michael Main Office [address] [place] [address] 05/28/2017 08:56:06 05/28/2017 10:30:23 Obesity 321886701 E66.9 also order for hoist operator, pcos nutrition counseling Vitamin D deficiency 347 62243 E55.9 Body mass index 40+ - severely obese 819993709 Z68.42 labs drawn [id number] Ceasar Husain DO Main Office [address] [place] [address] 10/08/2019 08:34:44 10/08/2019 09:31:04 Gynecologic examination 31065790 Z01.411 pap smear collected. pt to schedule screening mammogram at [facility]. 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 f/u 3 months, if tx not helping consider danazol or derm referral. Pruritic rash 09432932 L 28.2 Body mass index 40+ - severely obese 943342454 Z68.42 labs drawn Health Concerns Section Related Observation LastModified by Organization Detai ls LastModified Time None Recorded Concern Status LastModified by Organization Details LastModified Time None Recorded Advance Directives Directive N: Payers Insurance Date Sequence Insurance Name Policy Number Policy Newby Covered Member ID Newby Member ID Guarantor Name 10/08/2019 1 [place] [id number] Raman Haskins [id number] 05/18/2017 1 *SELF PAY* 10/08/2019 1 [employer] [id number] Raman Haskins [id number] Notes Date Note Type Note Provider Name [...] history of PCOS. DO [address], [place], [id number] [facility], 05/21/2017 21:38:05 05/28/2017 text/html Patient presents for lab follow-up of: obesity. all wnl except low vit d. DO [address], [place], [address], [facility], 05/30/2017 19:00:31 10/08/2019 text/html [...] yearly pap smears Patient presents for annual DO [address], [place], [id number] [place] [address] [facility], 01/04/2020 13:52:20 OBGyn Episode No OBEpisode recorded.
--- OUTSIDE RECORDS SUMMARY | 2024-10-09 16:57 | XMS_ITS | Encounter Summary ---
Author Organization Healthcare Address [address] [place] [address] Care Team Providers Care Linter Saw Sharpener Name Role Phone Priscila Caldera DO Primary Care Provider [phone] Encounter Details Date Type Department Care Team (Late st Contact Info) Description 05/02/2010 Orders Only External Location [address] [place] [address] Provider, External Social History Tobacco Use Types [...] Associated Diagnosis Comments US BREAST OUTSIDE IMAGES 05/02/2010 3:37 PM EST documented in this encounter Results * US BREAST OUTSIDE IMAGES (05/02/2010 3:37 PM EST) Anatomical Region Laterality Modality Breast Mammography 05/02/2010 3:37 PM EST us External Provider IMG BI PROCEDURES Final Result documented in this encounter Visit Diagnoses Not on filedocumented in this encounter Care Teams Linter Saw Sharpener Relationship Specialty Start Date End Date Priscila Caldera DO [address] [place] [address] PCP - General 03/30/22 documented as of this encounter
--- NOTE | 2024-10-09 17:00 | MM_ITS ---
PROCEDURE INFORMATION: Exam: MG Diagnostic Breast Tomosynthesis Exam date and time: 10/09/2024 4:59 PM Age: 48 years old Clinical indication: Right breast palpable lump; Additional info: Palpable RT axillary nodule, screening lt TECHNIQUE: Imaging protocol: Diagnostic tomosynthesis and 2D mammography including computer-aided detection (CAD) when performed. Unilateral or bilateral exam. COMPARISON: 1. MG MM DIG MAMM DX UNILAT LT CAD 03/07/2022 1:37 PM 2. MG MM DIG SCREENING MAMM BI W/CAD 02/08/2022 8:28 AM FINDINGS: MAMMOGRAPHY: Breast composition: There are scattered areas of fibroglandular density. Breast mammogram findings: A marker is placed over the area of palpable concern in the right axillary region. There is no underlying mammogram abnormality. No stellate mass, architectural distortion, or suspicious microcalcifications to suggest malignancy. No skin thickening or axillary adenopathy. IMPRESSION: No mammographic evidence of malignancy. If there is a persistent palpable area of concern in the right axillary region, a targeted ultrasound is recommended. ASSESSMENT: BI-RADS Category 0: Incomplete- Need Additional Imaging Evaluation.
== END 2024-10-09 23:59 | disposition home or self-care (01) ==
LOC: RAD 16:55
PROVIDERS: PCP Family Medicine; Visit Provider Nurse Practitioner Obstetrics & Gynecology
DX: Z12.31 Encounter for screening mammogram for malignant neoplasm of breast (principal); R22.31 Localized swelling, mass and lump, right upper limb
CPT/HCPCS: 77062; 77066; G0279

== ENCOUNTER 2024-10-15 10:56 | Outpatient (CLI) | payer OTHER, SELFPAY ==
--- OUTSIDE RECORDS SUMMARY | 2024-10-15 11:01 | XMS_ITS | Encounter Summary ---
Author Organization Healthcare Address [address] [place] [address] Care Team Providers Care Typewriter Aligner Name Role Phone Priscila Caldera DO Primary Care Provider [phone] Encounter Details Date Type Department Care Team (Late st Contact Info) Description 05/02/2010 Orders Only External Location [address] [place] [address] Provider, External Social History Tobacco Use Types [...] on filedocumented in this encounter Care Teams Typewriter Aligner Relationship Specialty Start Date End Date Priscila Caldera DO [address] [place] [address] PCP - General 03/30/22 documented as of this encounter
--- OUTSIDE RECORDS SUMMARY | 2024-10-15 11:01 | XMS_ITS | Encounter Summary ---
Author Organization Healthcare Address [address] [place] [address] Care Team Providers Care Rubber Tester Name Role Phone Priscila Caldera DO Primary Care Provider [phone] Encounter Details Date Type Department Care Team (Late st Contact Info) Description 03/30/2011 Orders Only External Location [address] [place] [address] Provider, External Social History Tobacco Use Types [...] on filedocumented in this encounter Care Teams Rubber Tester Relationship Specialty Start Date End Date Priscila Caldera DO [address] [place] [address] PCP - General 03/30/22 documented as of this encounter
--- OUTSIDE RECORDS SUMMARY | 2024-10-15 11:01 | XMS_ITS | Clinical Summary ---
Author Organization Healthcare Address [address] [place] [address] Care Team Providers Care Pooling Operator Name Role Phone Priscila Caldera DO Primary Care Provider [phone] Family History Medical History Relation Name Comments [...] 2022 Sigmoidoscopy 2022 [facility]-Colorectal Cancer Screening 2022 [id number] Vaccine () 11/25/2023 01/25/2021, 04/30/2020, 03/30/2020 [facility]-Influenza [...] patient's age to complete this topic Insurance [facility] Care Teams Pooling Operator Relationship Specialty Start Date End Date Priscila Caldera DO [address] [place] [address] PCP - General 03/30/22
--- OUTSIDE RECORDS SUMMARY | 2024-10-15 11:01 | XMS_ITS | Data Portability ---
Author Organization [facility],, Main Office Address [address] [place] [address] Assessment Encounter Date Assessment Date Assessment LastModified [...] a year unless there are new symptoms. [email or web address] Not available 10/08/2019 08:42:46 Plan of Treatment Reminders Order Date Submit Date Provider Last Modified By Organization Details Last Modified Time Details Appointments None recorded. Lab urinalysis , dipstick 2019 020 YEISON Main Office, [address], [place], [address], 0 09:44:48 test, urine 2019 020 YEISON Main Office, [address], [place], [address], 0 09:44:31 urinalysis , dipstick 2017 018 aclaxon Main Office, [address], [place], [address], 8 10:51:00 test, urine 2017 018 aclaxon Main Office, [address], [place], [address], 8 10:51:00 Referral None recorded. Procedures None recorded. Surgeries None recorded. Imaging None recorded. Medication Orders Medrol (Reji) 4 mg tablets in a dose pack 2019 020 INTERFACE [facility], [address] [place] [address], [address], 0 09:29:12 Contrave 8 mg-90 mg tablet,ext ended release 2017 018 [email or web address] 4 [facility], [address] [place] [address], [address], 0 08:43:18 Vitamin D2 1,250 mcg (50,000 unit) capsule 2017 018 [email or web address] 4 [facility], [address] [place] [address], [address], 0 08:43:32 Patient TargetsNo targets recorded. Patient Instructions Encounter Date Encounter Id Patient Instructions Last Modified By Organization Details Last Modified Time 05/21/2017 [id number] abnormal weight gain: care instructions aclaxon Not available 05/21/2017 10:51:03 05/28/2017 [id number] When You Want to Lose Weight: Care Instructions aclaxon Not available 05/28/2017 09:29:06 10/08/2019 [id number] body mass index: care instructions atul Not [...] which yao ts the lab [facility] ThinP rep Pap Test slide s. Follo wing imagi ng, the slide was revie wed by a [employer] logis t and/o r Patho logis t. Techn ical servi steve provi ded by: [facility], [facility] d/b/a PathG roup [address], [address] [place] [address] Prabhu pizarro M.D., [facility] Case revie wed and diagn osis rende red at: [facility] ts [address], [address] [place] [address] Prabhu pizarro M.D., [facility] ----- ----- ----- ----- ----- ----- ----- ----- ----- ----- ----- ----- Not Available [facility]) [facility] [facility] [address], [place], [address], 05/23/2017 10:05:17 05/21/19 18 05/22/2017 lipid panel , serum cholesterol 166 mg/dL 75-[address] [facility] ([facility]) [address] [place] [address] [address], [place], [address], 05/23/2017 11:19:25 05/21/19 18 05/22/2017 lipid panel , serum triglyceride s 140 mg/dL <[address] Available [facility] ([facility]) [address] [place] [address] [address], [place], [address], 05/23/2017 11:19:25 05/21/19 18 05/22/2017 lipid panel , serum HDL cholesterol 35 mg/dL >39 low Not Available [facility] ([facility]) [address] [place] [address] [address], [place], [address], 05/23/2017 11:19:25 05/21/19 18 05/22/2017 lipid panel , serum cholesterol / HDL ratio 4.74 ratio 0.00-4 .44 high Not Available [facility] ([facility]) [address] [place] [address] [address], [place], [address], 05/23/2017 11:19:25 05/21/19 18 05/22/2017 lipid panel , serum non-HDL cholesterol 131 mg/dL <130 high Not Available [facility] ([facility]) [address] [place] [address] [address], [place], [address], 05/23/2017 11:19:25 05/21/19 18 05/22/2017 lipid panel [...] ATPII I guide lines Not Available [facility] ([facility]) [address], [place], [address], 05/23/2017 11:19:25 05/21/19 18 05/22/2017 lipid panel [...] Lipid Profi le (LIPC VD). Not Available [facility] ([facility]) [address] [place] [address] [address], [place], [address], 05/23/2017 11:19:25 05/21/19 18 05/22/2017 CBC w/ auto diff WBC 11.1 K/uL 3.8-11 .5 E ffect kami 03/05 New WBC Count Refer ence Range for Adult Males and Femal es: 3.8-1 1.5 K/uL Previ ous WBC Count Refer ence Range for Adult Males and Femal es: 3.8-1 2.8 K/uL Not Available [facility] ([facility]) [address] [place] [address] [address], [place], [address], 05/23/2017 11:19:26 05/21/19 18 05/22/2017 CBC w/ auto diff red blood cell count (RBC) 4.63 M/mm3 3.60-5 .30 E ffect kami 2016 New Red Blood Count Refer ence Range for Adult Femal es: 3.6-5 .3 M/mm3 Previ ous Red Blood Count Refer ence Range for Adult Femal es: 3.7-5 .1 M/mm3 Not Available [facility] ([facility]) [address] [place] [address] [address], [place], [address], 05/23/2017 11:19:26 05/21/19 18 05/22/2017 CBC w/ auto diff hemoglobin (HGB) 13.9 gm/dL 12.0-1 6.0 Not Available [facility] ([facility]) [address] [place] [address] [address], [place], [address], 05/23/2017 11:19:26 05/21/19 18 05/22/2017 CBC w/ auto diff hematocrit (HCT) 43.6 % 37.4-4 8.3 Not Available [facility] ([facility]) [address] [place] [address] [address], [place], [address], 05/23/2017 11:19:26 05/21/19 18 05/22/2017 CBC w/ auto diff MCV 94.2 fL 81.0-1 02.0 Not Available [facility] ([facility]) [address] [place] [address] [address], [place], [address], 05/23/2017 11:19:26 05/21/19 18 05/22/2017 CBC w/ auto diff MCH 30.0 pg 26.9-3 5.0 Not Available [facility] ([facility]) [address] [place] [address] [address], [place], [address], 05/23/2017 11:19:26 05/21/19 18 05/22/2017 CBC w/ auto diff MCHC 31.9 g/dL 30.4-3 4.8 Not Available [facility] ([facility]) [address] [place] [address] [address], [place], [address], 05/23/2017 11:19:26 05/21/19 18 05/22/2017 CBC w/ auto diff RDW 46.5 fL 38.6-5 3.8 Not Available [facility] ([facility]) [address] [place] [address] [address], [place], [address], 05/23/2017 11:19:26 05/21/19 18 05/22/2017 CBC w/ auto diff platelet count 220 K/cum m 137-39 7 Not Available [facility] ([facility]) [address] [place] [address] [address], [place], [address], 05/23/2017 11:19:26 05/21/19 18 05/22/2017 CBC w/ auto diff neutrophils automated 66.5 % 41.0-7 7.0 Not Available [facility] ([facility]) [address] [place] [address] [address], [place], [address], 05/23/2017 11:19:26 05/21/19 18 05/22/2017 CBC w/ auto diff lymphocytes automated 24.6 % 14.0-4 8.0 Not Available [facility] ([facility]) [address] [place] [address] [address], [place], [address], 05/23/2017 11:19:26 05/21/19 18 05/22/2017 CBC w/ auto diff monocytes automated 5.2 % 4.0-13 .0 Not Available [facility] ([facility]) [address] [place] [address] [address], [place], [address], 05/23/2017 11:19:26 05/21/19 18 05/22/2017 CBC w/ auto diff eosinophils automated 2.8 % 1.0-8. 0 Not Available [facility] ([facility]) [address] [place] [address] [address], [place], [address], 05/23/2017 11:19:26 05/21/19 18 05/22/2017 CBC w/ auto diff basophils automated 0.4 % 0.0-1. 5 Not Available [facility] ([facility]) [address] [place] [address] [address], [place], [address], 05/23/2017 11:19:26 05/21/19 18 05/22/2017 CBC w/ auto diff immature granulocyte automated 0.5 % 0.0-1. 0 Not Available [facility] ([facility]) [address] [place] [address] [address], [place], [address], 05/23/2017 11:19:26 05/21/19 18 05/22/2017 CMP, serum or plasm a sodium 139 mEq/L 134-14 5 Not Available [facility] ([facility]) [address] [place] [address] [address], [place], [address], 05/23/2017 11:19:26 05/21/19 18 05/22/2017 CMP, serum or plasm a potassium 3.9 mEq/L 3.4-5. 4 Not Available [facility]) [address] [place] [address] [address], [place], [address], 05/23/2017 11:19:26 05/21/19 18 05/22/2017 CMP, serum or plasm a chloride 103 mEq/L 97-109 Not Available [facility]) [address] [place] [address] [address], [place], [address], 05/23/2017 11:19:26 05/21/19 18 05/22/2017 CMP, serum or plasm a CO2 22 mEq/L 22-32 Not Available [facility]) [address] [place] [address] [address], [place], [address], 05/23/2017 11:19:26 05/21/19 18 05/22/2017 CMP, serum or plasm a glucose 92 mg/dL 65-99 Ef fecti ve 2016* New GLU Refer ence Range : 65-99 mg/dL Previ ous GLU Refer ence Range : 65-10 5 mg/dL Not Available [facility] ([facility]) [address] [place] [address] [address], [place], [address], 05/23/2017 11:19:26 05/21/19 18 05/22/2017 CMP, serum or plasm a BUN 14 mg/dL 5-26 Not Available [facility] ([facility]) [address] [place] [address] [address], [place], [address], 05/23/2017 11:19:26 05/21/19 18 05/22/2017 CMP, serum or plasm a creatinine 0.8 mg/dL 0.5-1. 5 Not Available [facility]) [address] [place] [address] [address], [place], [address], 05/23/2017 11:19:26 05/21/19 18 05/22/2017 CMP, serum or plasm a calcium 9.4 mg/dL 8.5-10 .3 Not Available [facility] ([facility]) [address] [place] [address] [address], [place], [address], 05/23/2017 11:19:26 05/21/19 18 05/22/2017 CMP, serum or plasm a protein 6.5 g/dL 6.1-8. 3 Not Available [facility] ([facility]) [address] [place] [address] [address], [place], [address], 05/23/2017 11:19:26 05/21/19 18 05/22/2017 CMP, serum or plasm a albumin 4.6 g/dL 3.7-5. 2 Not Available [facility] ([facility]) [address] [place] [address] [address], [place], [address], 05/23/2017 11:19:26 05/21/19 18 05/22/2017 CMP, serum or plasm a alkaline phosphatase 90 IU/L 38-126 Not Available [facility] ([facility]) [address] [place] [address] [address], [place], [address], 05/23/2017 11:19:26 05/21/19 18 05/22/2017 CMP, serum or plasm a ALT (SGPT) 21 IU/L 7-52 Not Available [facility] ([facility]) [address] [place] [address] [address], [place], [address], 05/23/2017 11:19:26 05/21/19 18 05/22/2017 CMP, serum or plasm a AST (SGOT) 16 IU/L 13-39 Not Available [facility] ([facility]) [address] [place] [address] [address], [place], [address], 05/23/2017 11:19:26 05/21/19 18 05/22/2017 CMP, serum or plasm a bilirubin, total 0.4 mg/dL 0.2-1. 5 Not Available [facility] [address] [place] [address] [address], [place], [address], 05/23/2017 11:19:26 05/21/19 18 05/22/2017 CMP, serum or plasm a A/G ratio 2.4 mg/dL 1.1-2. 5 Not Available [facility] ([facility]) [address] [place] [address] [address], [place], [address], 05/23/2017 11:19:26 05/21/19 18 05/22/2017 GFR, estim ated (eGFR ), serum GFR/black >60 mL/mi n/1.7 3m2 >60 Not Available [facility] ([facility]) [address] [place] [address] [address], [place], [address], 05/23/2017 11:19:27 05/21/19 18 05/22/2017 GFR, estim ated (eGFR ), serum GFR/white >60 mL/mi n/1.7 3m2 >60 Chron ic Kidne y Disea se: Less than 60 ml/mi n/1.7 3 squar e meter s End Stage Renal Disea se: Less than 15 ml/mi n/1.7 3 squar e meter s Not Available [facility] [address] [place] [address] [address], [place], [address], 05/23/2017 11:19:27 05/21/19 18 05/22/2017 proge stero [...] [facility]) [address] [place] [address] [address], [place], [address], 05/23/2017 11:19:27 05/21/19 18 05/22/2017 FSH (foll icle- stimu latin g hormo ne), serum FSH 4.75 mIU/m L FSH Refer ence Range Males : 1.27 - 19.26 Femal es: Mid-F ollic ular Phase : 3.85 - 8.78 Mid-C ycle Peak: 4.54 - 22.51 Mid-L uteal Phase : 1.79 - 5.12 Postm enopa usal: 16.74 - 113.5 9 Not Available [facility] ([facility]) [address] [place] [address] [address], [place], [address], 05/23/2017 11:19:27 05/21/19 18 05/22/2017 estra diol, serum estradiol 42 pg/mL ESTRA DIOL REFER ENCE RANGE Male: <20 - 47 pg/ml Femal e: Post Menop ausal <20 - 40 pg/ml Mid-f ollic ular phase 27 - 122 pg/ml Mid-l uteal phase 49 - 291 pg/ml Jackelyn- ovula tory phase 95 - 433 pg/ml Not Available [facility] ([facility]) [address] [place] [address] [address], [place], [address], 05/23/2017 11:19:28 05/21/19 18 05/22/2017 vitam in B12, serum vitamin B12 502 pg/mL 180-91 4 Not Available [facility] ([facility]) [address] [place] [address] [address], [place], [address], 05/23/2017 11:19:28 05/21/19 18 05/22/2017 T4, free, serum thyroxine free (free T4) 0.89 NG/dL 0.58-1 .64 Not Available [facility] ([facility]) [address] [place] [address] [address], [place], [address], 05/23/2017 11:19:29 05/21/19 18 05/22/2017 TSH, serum or plasm a TSH 1.08 mU/L 0.34-5 .00 Not Available [facility] ([facility]) [address] [place] [address] [address], [place], [address], 05/23/2017 11:19:29 05/21/19 18 05/22/2017 testo stero [...] L 23-16 5 nmol/ L Not Available [facility] ([facility]) [address] [place] [address] [address], [place], [address], 05/23/2017 11:19:30 05/21/19 18 05/23/2017 testo stero ne, free + total , serum testosterone , total (female and children) 26.0 NG/dL 10.0-5 2.0 Preme nopau meir 10-52 ng/dL (Grea ter than 18 years ) Postm enopa usal 6-30 ng/dL Not Available [facility] ([facility]) [address] [place] [address] [address], [place], [address], 05/23/2017 11:19:30 05/21/19 18 05/23/2017 testo stero [...] in chapito ntrat ions. Not Available [facility] ([facility]) [facility] [facility] [address], [place], [address], 05/23/2017 11:19:30 05/21/19 18 05/22/2017 vitam in [...] latio n requi red. Not Available [facility] ([facility]) [facility] [address], [place], [address], 05/23/2017 11:19:30 05/21/19 18 05/21/2017 urina lysis , dipst ick Leukocytes - Not Available Main Of fice [address], [place], [address], 05/21/2017 09:47:45 05/21/19 18 05/21/2017 urina lysis , dipst ick Nitrite negati ve Not Available Main Office [address], [place], [address], 05/21/2017 09:47:45 05/21/19 18 05/21/2017 urina lysis , dipst ick Urobilinogen - Not Available Main Office [address], [place], [address], 05/21/2017 09:47:45 05/21/19 18 05/21/2017 urina lysis , dipst ick Protein - Not Available Main Offic e [address], [place], [address], 05/21/2017 09:47:45 05/21/19 18 05/21/2017 urina lysis , dipst ick pH 5.0 Not Available Main Offic e [address], [place], [address], 05/21/2017 09:47:45 05/21/19 18 05/21/2017 urina lysis , dipst ick Blood - Not Available Main Offic e [address], [place], [address], 05/21/2017 09:47:45 05/21/19 18 05/21/2017 urina lysis , dipst ick Specific [place] 1.020 Not Available Main O ffice [address], [place], [address], 05/21/2017 09:47:45 05/21/19 18 05/21/2017 urina lysis , dipst ick Ketone - Not Available Main Offic e [address], [place], [address], 05/21/2017 09:47:45 05/21/19 18 05/21/2017 urina lysis , dipst ick Bilirubin - Not Available Main Off ice [address], [place], [address], 05/21/2017 09:47:45 05/21/19 18 05/21/2017 urina lysis , dipst ick Glucose - Not Available Main Offic e [address], [place], [address], 05/21/2017 09:47:45 05/21/19 18 05/21/2017 pregn bianca test, urine HCG negati ve Not Available Main Office [address], [place], [address], 05/21/2017 09:48:14 10/08/19 20 10/10/2019 pap, LB Pap test thin prep Negati ve for Intrae pithel ial Lesion or Malign bianca normal ACCES ELISE #: [id number] [facility] e: Cervi jovani/E ndoce rvica l LMP: [id number] Date Taken : 10/07 Speci men [...] provi ded by [facility] i[facility] Patho logis [employer] [employer], d/b/a [facility] [place], [address] [place] [address] Darrion Zhang MD, Labor atory Direc tor. Case revie wed and diagn [facility], d/b/a [facility], [address] , [place] [address] Darrion Zhang MD, Labor atory Dire tor. CONFI DENTI AL Not Available [facility]) [address], [place], [address], 10/10/2019 10:41:22 10/08/19 20 10/08/2019 pregn bianca test, urine HCG negati ve Not Available Main Office [address], [place], [address], 10/08/2019 08:45:24 10/08/1910/08/2019 urina lysis , dipst ick Leukocytes - Not Available Main Of fice [address], [place], [address], 10/08/2019 08:45:19 10/08/19 20 10/08/2019 urina lysis , dipst ick Nitrite negati ve Not Available Main Office [address], [place], [address], 10/08/2019 08:45:19 10/08/19 20 10/08/2019 urina lysis , dipst ick Urobilinogen - Not Available Main Office [address], [place], [address], 10/08/2019 08:45:19 10/08/19 20 10/08/2019 urina lysis , dipst ick Protein - Not Available Main Offic e [address], [place], [address], 10/08/2019 08:45:19 10/08/1910/08/2019 urina lysis , dipst ick pH 6.0 Not Available Main Offic e [address], [place], [address], 10/08/2019 08:45:19 10/08/1912 1010/08/2019 urina lysis , dipst ick Blood - Not Available Main Offic e [address], [place], [address], 10/08/2019 08:45:19 10/08/19 20 10/08/2019 urina lysis , dipst ick Specific [place] 1.015 Not Available Main O ffice [address], [place], [address], 10/08/2019 08:45:19 10/08/19 20 10/08/2019 urina lysis , dipst ick Ketone - Not Available Main Offic e [address], [place], [address], 10/08/2019 08:45:19 10/08/19 20 10/08/2019 urina lysis , dipst ick Bilirubin - Not Available Main Off ice [address], [place], [address], 10/08/2019 08:45:19 10/08/1910/08/2019 urina lysis , dipst ick Glucose - Not Available Main Offic e [address], [place], [address], 10/08/2019 08:45:19 10/08/19 20 10/08/2019 urina lysis , dipst ick Appearance - Not Available Main Of fice [address], [place], [address], 10/08/2019 08:45:19 10/08/1910/08/2019 urina lysis , dipst ick Color - Not Available Main Offic e [address], [place], [address], 10/08/2019 08:45:19 Result Notes None recorded. Procedures Surgical History Date Name Laterality Status Provider Name and Address Organization Details Recorded Time 10/08/19 Date of Last Pap Smear completed Meredith Garay [facility], 10/08/2019 08:44:40 Cholecystectomy completed [facility], 05/21/2017 09:26:05 Tonsillectomy completed [facility], 05/21/2017 09:26:22 Imaging Results [...] Updated DateTime 8 172.72 cm 45.8 kg/m2 109641. 3 g 81 /min 97.5 [degF] 110/82 mm[Hg] [facility], 8 09:37:30 Date Recorded Body height Body mass index (BMI) Body weight Heart rate Body temperature Systolic And Diastolic Systolic And Diastolic Provider Name and Address Organization Details Last Updated DateTime 8 172.72 cm 45.8 kg/m2 886682. 3 g 90 /min 96.8 [degF] 123/91 mm[Hg] 122/82 mm[Hg] [facility], 8 09:43:52 Date Recorded Body height Body mass index (BMI) Body weight Respiratory rate Heart rate Body temperature Systolic And Diastolic Provider Name and Address Organization Details Last Updated DateTime 0 172.72 cm 47.3 kg/m2 556081. 23 g 16 /min 78 /min 97.7 [degF] 131/76 mm[Hg] [facility] [place] [facility], 0 08:43:01 Social History Question Answer Notes LastModified by Organizat ion Details LastModified Time Tobacco Smoking Status Former Smoker Not Available [facility] 01/20/2020 03:20:42 Able To Swim? Yes Information not available 05/21/2017 Accident Related Injury No Information not available 05/21/2017 Do You Have An Advance Directive? No [id number] Information not available 01/20/2020 How Many Years Have You Consumed Alcohol? 18 [id number] Information not available 01/20/2020 Animal Exposure? Yes Informat ion not available 05/21/2017 Are You Currently Sexually Active With Anyone Who Has Traveled (within The Last 12 Weeks) To A Zika-affected Area? No [id number] Information not available 01/20/2020 Do You Wear A Helmet When Biking? No [id number] Information not available 01/20/2020 Are You Blind Or Do You Have Difficulty Seeing? No [id number] Information not available 01/20/2020 What Is Your Level Of Caffeine Consumption? Occasional [id number] Information not available 01/20/2020 How Much Tobacco Do You Chew? None [id number] Information not available 01/20/2020 Concerns About Meeting Basic Needs (food, Housing, Heat, Etc)? No Information not available 05/21/2017 Are You Deaf Or Do You Have Serious Difficulty Hearing? No [id number] Information not available 01/20/2020 What Type Of Diet Are You Following? REGULAR [id number] Information not available 01/20/2020 Which Illicit Or Recreational Drugs Have You Used? None [id number] Information not available 01/20/2020 Education 2 Year College Informatio n not available 05/21/2017 Family History Of Heart Disease? Yes Information not available 05/21/2017 Have There Been Any Changes To Your Family Or Social Situation? No [id number] Information no t available 01/20/2020 When Did You Quit Smoking? 1-5yearssincel astciyair [id number] Information not available 01/20/2020 Are There Any Guns Present In Your Home? No [id number] Information not available 01/20/2020 Hard Of Hearing Or Deaf In One Or Both Ears? No Information not available 05/21/2017 Legally Blind In One Or Both Eyes? No Information no t available 05/21/2017 Live Alone Or With Others? With Others Information not available 05/21/2017 Do You Have A Medical Power Of Charge Rn? No [id number] Information not available 01/20/2020 What Was The Date Of Your Most Recent Tobacco Screening? 05/28/2017 [id number] Information not available 01/20/2020 How Many Children Do You Have? 1 [id number] Information not available 01/20/2020 Performs Monthly Self-breast Exam? No Information no t available 05/21/2017 Do You Have Any Pets? Yes [id number] Information not available 01/20/2020 Difficulty Reading? No Information not available 05/21/2017 Seat Belts Used Routinely Yes Information not available 05/21/2017 Are You Sexually Active? Yes [id number] Information not available 01/20/2020 Smoke Alarm In Home Yes Information not available 05/21/2017 Do You Have Smoke And Carbon Monoxide Detectors In Your Home? Yes [id number] Information not available 01/20/2020 Are You Passively Exposed To Smoke? No Information no t available 05/21/2017 Are There Any Smokers In Your House? No Information not available 05/21/2017 How Much Tobacco Do You Smoke? No [id number] Information not available 01/20/2020 General Stress Level Medium Information not available 05/21/2017 Sun Exposure Occasional Information not available 05/21/2017 Do You Use Sunscreen Routinely? Yes [id number] Information not available 01/20/2020 TB Risk Low Information no t available 05/21/2017 Has Tobacco Cessation Counseling Been Provided? No [id number] Information not available 01/20/2020 How Many Years Have You Smoked Tobacco? 20 [id number] Information not available 01/20/2020 Difficulty Watching TV? No Information not available 05/21/2017 Do You Have Difficulty Walking Or Climbing Stairs? No [id number] Information not available 01/20/2020 Sex: Unknown Functional Status Question Answer Note LastModified by Organizat ion Details LastModified Time What is your level of alcohol consumption? Occasional [id number] Information not available 01/20/2020 Are you currently employed? Yes [id number] Information not available 01/20/2020 Do you have transportation difficulties? No [id number] Information not available 01/20/2020 Are you able to walk? YESWOREST [id number] Information not available 01/20/2020 Do you have difficulty doing errands alone? No [id number] Information not available 01/20/2020 Are you able to care for yourself? 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 No [id number] Information not available 01/20/2020 What is your exercise level? Occasional [id number] Information not available 01/20/2020 Mental Status Question Answer Note LastModified by Organization D etails LastModified Time Do you have difficulty concentrating, remembering or making decisions? Yes [id number] Information no t available 01/20/2020 Family History [...] Artery Disease N Other N Gout N Blood Diseases N Kidney Stones N Hyperthyroidism N Enlarged Prostate N Blood [...] Michael Main Office [address] [place] [address] 05/21/2017 09:01:23 05/21/2017 10:24:05 Gynecologic examination 32457079 Z01.411 pap smear collected Disorder o f menstruation 860017432 N92.5 Body mass index 40+ - severely obese 125734161 Z68.42 labs drawn Female hirsutism 9358826 9 L68.0 Fatigue 47621711 R53.83 Abnormal weight gain 161 823709 R63.5 [id number] ANNE Michael Main Office [address] [place] [address] 05/28/2017 08:56:06 05/28/2017 10:30:23 Obesity 815648861 E66.9 also order for satellite communications operator, pcos nutrition counseling Vitamin D deficiency 347 97829 E55.9 Body mass index 40+ - severely obese 629398510 Z68.42 labs drawn [id number] Ceasar Husain DO Main Office [address] [place] [address] 10/08/2019 08:34:44 10/08/2019 09:31:04 Gynecologic examination 69715609 Z01.411 pap smear collected. pt to schedule screening mammogram at [facility]. 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 f/u 3 months, if tx not helping consider danazol or derm referral. Pruritic rash 37155526 L 28.2 Body mass index 40+ - severely obese 591054468 Z68.42 labs drawn Health Concerns Section Related Observation LastModified by Organization Detai ls LastModified Time None Recorded Concern Status LastModified by Organization Details LastModified Time None Recorded Advance Directives Directive N: Payers Insurance Date Sequence Insurance Name Policy Number Policy Newby Covered Member ID Newby Member ID Guarantor Name 10/08/2019 1 [place] [id number] Raman Haskins [id number] 05/18/2017 1 *SELF PAY* 10/08/2019 1 [employer]) [id number] Raman Haskins [id number] Notes Date Note Type Note Provider Name and Address Organization Details Recorded Time 05/21/2017 text/html Annual GYNReport ed by PatientHistoryFor history, patient reportsno gynecologic complaints.Genitourinar y symptomsFor urinary symptoms, patient reportsno hematuriaandno incontinence. For vulva, patient reportsno genital lesion. For vagina, patient reportsnormal vaginal discharge. For menstrual cycle, (regular, but sometimes heavy with clots, sometimes light/scant.).Breast symptomsFor breast, patient reportsno breast pain,no breast lump, andno nipple discharge.Endocrine symptomsFor menopausal symptoms, patient reportshot flashes (sometimes)(nightsweats ). For sexual complaints, patient reportsno sexual complaints,no pain during intercourse, andnormal libido.Psychological symptomsFor psychological symptoms, patient reportsno depression,no anxiety, andno pmdd.Preventative measuresFor preventive measures, patient reportsfollowed with yearly pap smearsandmammogram performed within the past year. Patient presents for pap/annual and lab work. She would like her hormones checked. She c/o fatigue, weight gain, facial hair. She does have a history of PCOS. Ceasar Husain DO [address], [place], [address], [facility], 05/21/2017 21:38:05 05/28/2017 text/html Patient presents for lab follow-up of: obesity. all wnl except low vit d. Ceasar Husain DO [address], [place], [address], [facility], 05/30/2017 19:00:31 10/08/2019 text/html Annual GYNReport ed by PatientHistoryFor history, patient reportsno gynecologic complaints(patient reports she gets a severe red and itchy rash on her neck right before her period which goes away during period. this happens monthly.).Genitourinary symptomsFor menstrual cycle, patient reportsnormal menses. For urinary symptoms, patient reportsno hematuriaandno incontinence. For vulva, patient reportsno genital lesion. For vagina, patient reportsnormal vaginal discharge.Breast symptomsFor breast, patient reportsno breast pain,no breast lump, andno nipple discharge.Contraception For current contraception, patient reportsbirth control not practiced.Endocrine symptomsFor sexual complaints, patient reportsno sexual complaints,no pain during intercourse, andnormal libido. For menopausal symptoms, patient reportsno menopausal symptomsandnormal vaginal lubrication.Psychologic al symptomsFor psychological symptoms, patient reportsno depression,no anxiety, andno pmdd.Preventative measuresFor preventive measures, patient reportsfollowed with yearly pap smears. Patient presents for annual Ceasar Husain DO [address], [place], [address], [facility], 01/04/2020 13:52:20 OBGyn Episode No OBEpisode recorded.
--- NOTE | 2024-10-15 11:19 | US_ITS ---
FINAL REPORT CLINICAL HISTORY: PT FELT PALP AREA NEAR AXILLA, THAT AREA HAS DEC IN SIZE SINCE MAMM. PER [facility] US AXILLA RECOMMENDED TO IMAGE PTS AOC IN AXILLA FINDINGS: Limited sonographic images were obtained of the soft tissues in the right axillary region at the area of reported palpable abnormality. Normal-sized lymph nodes are noted. There is no evidence of mass or fluid collection. IMPRESSION: No suspicious findings. If clinical concern persists, consider CT or MRI evaluation. Reviewed, Interpreted and Dictated by Breanna Falcon MD Transcribed by Shanta Figueroa Authenticated and [facility]
== END 2024-10-15 23:59 | disposition home or self-care (01) ==
LOC: RAD 10:56
PROVIDERS: PCP Family Medicine; Visit Provider Nurse Practitioner Obstetrics & Gynecology
DX: R92.8 Other abnormal and inconclusive findings on diagnostic imaging of breast (principal)
CPT/HCPCS: 76642

== ENCOUNTER 2024-11-28 07:06 | Outpatient (CLI) | payer OTHER, SELFPAY ==
--- OUTSIDE RECORDS SUMMARY | 2024-11-28 07:09 | XMS_ITS | Encounter Summary ---
Author Organization Healthcare Address [address] [place] [address] Care Team Providers Care Printing Technician Name Role Phone Priscila Caldera DO Primary Care Provider [phone] Encounter Details Date Type Department Care Team (Late st Contact Info) Description 05/02/2010 Orders Only External Location [address] [place] [address] Provider, External Social History Tobacco Use Types [...] on filedocumented in this encounter Care Teams Printing Technician Relationship Specialty Start Date End Date Priscila Caldera DO [address] [place] [address] PCP - General 03/30/22 documented as of this encounter
--- OUTSIDE RECORDS SUMMARY | 2024-11-28 07:09 | XMS_ITS | Encounter Summary ---
Author Organization Healthcare Address [address] [place] [address] Care Team Providers Care Production Line Mechanic Name Role Phone Priscila Caldera DO Primary Care Provider [phone] Encounter Details Date Type Department Care Team (Late st Contact Info) Description 03/30/2011 Orders Only External Location [address] [place] [address] Provider, External Social History Tobacco Use Types [...] on filedocumented in this encounter Care Teams Production Line Mechanic Relationship Specialty Start Date End Date Priscila Caldera DO [address] [place] [address] PCP - General 03/30/22 documented as of this encounter
--- OUTSIDE RECORDS SUMMARY | 2024-11-28 07:09 | XMS_ITS | Clinical Summary ---
Author Organization Healthcare Address [address] [place] [address] Care Team Providers Care Wire Chief Name Role Phone Priscila Caldera DO Primary Care Provider [phone] Family History Medical History Relation Name Comments [...] 2022 Sigmoidoscopy 2022 [facility]-Colorectal Cancer Screening 2022 [id number] Vaccine () 11/25/2023 01/25/2021, 04/30/2020, 03/30/2020 [facility]-Influenza [...] patient's age to complete this topic Insurance [facility] Care Teams Wire Chief Relationship Specialty Start Date End Date Priscila Caldera DO [address] [place] [address] PCP - General 03/30/22
[2024-11-28 08:15] LABS: Alanine Aminotransferase 16 U/L (12-78); Albumin Level 4.1 g/dl (3.5-5.0); Albumin/Globulin Ratio 2.0 (1.1-1.8); Alkaline Phosphatase 93 U/L (38-126); Anion Gap 12.3 mEq/L (5-15); Aspartate Amino Transferase 22 U/L (14-36); Bilirubin,Total 0.4 mg/dl (0.2-1.3); Blood Urea Nitrogen 14 mg/dl (7-17); Calcium 9.1 mg/dl (8.4-10.2); Carbon Dioxide 25 mmol/L (22.0-30.0); Chloride 105 mmol/L (98-107); Cholesterol 142 mg/dl (140-200); Creatinine,Serum 0.80 mg/dl (0.52-1.04); Estimated Glomerular Filt Rate 77 ml/min (>60); GFR (African American) 93 ML/MIN (>60); Globulin 2.1 g/dL (1.3-3.2); Glucose 85 mg/dl (74-100); HDL Cholesterol 31 mg/dl (40-60); Potassium 4.3 mmoL/L (3.5-5.1); Sodium 138 mmol/L (136-145); Total Protein,Serum 6.2 g/dl (6.3-8.2); Triglycerides 167 mg/dl (30-150)
[2024-11-28 09:50] LABS: Hemoglobin A1C 5.3 % (4.0-6.0)
== END 2024-11-28 23:59 | disposition home or self-care (01) ==
LOC: LAB 07:07
PROVIDERS: PCP Family Medicine; Visit Provider Family Medicine
DX: Z00.00 Encounter for general adult medical examination without abnormal findings (principal); E11.9 Type 2 diabetes mellitus without complications; E78.00 Pure hypercholesterolemia, unspecified
CPT/HCPCS: 36415; 80053; 80061; 83036

== ENCOUNTER 2025-01-30 11:02 | Outpatient (CLI) | payer OTHER, SELFPAY ==
--- OUTSIDE RECORDS SUMMARY | 2025-02-03 11:10 | XMS_ITS | Clinical Summary ---
Author Organization Healthcare Address [address] [place] [address] Care Team Providers Care Cosmetic Chemist Name Role Phone Priscila Caldera DO Primary Care Provider [phone] Family History Medical History Relation Name Comments [...] 2022 Sigmoidoscopy 2022 [facility]-Colorectal Cancer Screening 2022 [id number] Vaccine ( season) 2024 01/25/2021, 04/30/2020, 03/30/2020 [facility]-Influenza Vaccine (#1) 2024 [...] patient's age to complete this topic Insurance [facility] Care Teams Cosmetic Chemist Relationship Specialty Start Date End Date Priscila Caldera DO [address] [place] [address] PCP - General 03/30/22
--- OUTSIDE RECORDS SUMMARY | 2025-02-03 11:10 | XMS_ITS | Data Portability ---
Author Organization [facility],, Main Office Address [address] [place] [address] Assessment Encounter Date Assessment Date Assessment LastModified [...] a year unless there are new symptoms. [email or web address] Not available 10/08/2019 08:42:46 Plan of Treatment Reminders Order Date Submit Date Provider Last Modified By Organization Details Last Modified Time Details Appointments None recorded. Lab urinalysis , dipstick 2019 020 YEISON Main Office, [address], [place], [address], 0 09:44:48 test, urine 2019 020 YEISON Main Office, [address], [place], [address], 0 09:44:31 urinalysis , dipstick 2017 018 aclaxon Main Office, [address], [place], [address], 8 10:51:00 test, urine 2017 018 aclaxon Main Office, [address], [place], [address], 8 10:51:00 Referral None recorded. Procedures None recorded. Surgeries None recorded. Imaging None recorded. Medication Orders Medrol (Reji) 4 mg tablets in a dose pack 2019 020 INTERFACE [facility] [address], [address] [place] [address], [address], 0 09:29:12 Contrave 8 mg-90 mg tablet,ext ended release 2017 018 [email or web address] 4 [facility], [address] [place] [address], [address], 0 08:43:18 Vitamin D2 1,250 mcg (50,000 unit) capsule 2017 018 [email or web address] 4 [facility] [address], [address] [place] [address], [address], 0 08:43:32 Patient TargetsNo targets recorded. Patient Instructions Encounter Date Encounter Id Patient Instructions Last Modified By Organization Details Last Modified Time 05/21/2017 [id number] abnormal weight gain: care instructions aclaxon Not available 05/21/2017 10:51:03 05/28/2017 [id number] When You Want to Lose Weight: Care Instructions aclaxon Not available 05/28/2017 09:29:06 10/08/2019 [id number] body mass index: care instructions atul Not [...] which yao ts the lab [facility] ThinP rep Pap Test slide s. Follo wing imagi ng, the slide was revie wed by a [employer] logis t and/o r Patho logis t. Techn ical servi steve provi ded by: [facility], [facility] d/b/a PathG roup [address], [address] [place] [address] Prabhu pizarro M.D., [facility] Case revie wed and diagn osis rende red at: [facility] ts [address], [address] [place] [address] Prabhu pizarro M.D., [facility] ----- ----- ----- ----- ----- ----- ----- ----- ----- ----- ----- ----- Not Available [facility]) [facility] [facility] [address], [place], [address], 05/23/2017 10:05:17 05/21/19 18 05/22/2017 lipid panel , serum cholesterol 166 mg/dL 75-200 Not Available [facility] ([facility]) [address] [place] [address] [address], [place], [address], 05/23/2017 11:19:25 05/21/19 18 05/22/2017 lipid panel , serum triglyceride s 140 mg/dL <150 Not Available [facility] ([facility]) [address] [place] [address] [address], [place], [address], 05/23/2017 11:19:25 05/21/19 18 05/22/2017 lipid panel , serum HDL cholesterol 35 mg/dL >39 low Not Available [facility] ([facility]) [address] [place] [address] [address], [place], [address], 05/23/2017 11:19:25 05/21/19 18 05/22/2017 lipid panel , serum cholesterol / HDL ratio 4.74 ratio 0.00-4 .44 high Not Available [facility] ([facility]) [address] [place] [address] [address], [place], [address], 05/23/2017 11:19:25 05/21/19 18 05/22/2017 lipid panel , serum non-HDL cholesterol 131 mg/dL <130 high Not Available [facility] ([facility]) [address] [place] [address] [address], [place], [address], 05/23/2017 11:19:25 05/21/19 18 05/22/2017 lipid panel [...] ATPII I guide lines Not Available [facility] ([facility]) [address], [place], [address], 05/23/2017 11:19:25 05/21/19 18 05/22/2017 lipid panel [...] Lipid Profi le (LIPC VD). Not Available [facility] ([facility]) [address] [place] [address] [address], [place], [address], 05/23/2017 11:19:25 05/21/19 18 05/22/2017 CBC w/ auto diff WBC 11.1 K/uL 3.8-11 .5 E ffect kami 03/05 New WBC Count Refer ence Range for Adult Males and Femal es: 3.8-1 1.5 K/uL Previ ous WBC Count Refer ence Range for Adult Males and Femal es: 3.8-1 2.8 K/uL Not Available [facility] ([facility]) [address] [place] [address] [address], [place], [address], 05/23/2017 11:19:26 05/21/19 18 05/22/2017 CBC w/ auto diff red blood cell count (RBC) 4.63 M/mm3 3.60-5 .30 E ffect kami 2016 New Red Blood Count Refer ence Range for Adult Femal es: 3.6-5 .3 M/mm3 Previ ous Red Blood Count Refer ence Range for Adult Femal es: 3.7-5 .1 M/mm3 Not Available [facility] ([facility]) [address] [place] [address] [address], [place], [address], 05/23/2017 11:19:26 05/21/19 18 05/22/2017 CBC w/ auto diff hemoglobin (HGB) 13.9 gm/dL 12.0-1 6.0 Not Available [facility] ([facility]) [address] [place] [address] [address], [place], [address], 05/23/2017 11:19:26 05/21/19 18 05/22/2017 CBC w/ auto diff hematocrit (HCT) 43.6 % 37.4-4 8.3 Not Available [facility] ([facility]) [address] [place] [address] [address], [place], [address], 05/23/2017 11:19:26 05/21/19 18 05/22/2017 CBC w/ auto diff MCV 94.2 fL 81.0-1 02.0 Not Available [facility] ([facility]) [address] [place] [address] [address], [place], [address], 05/23/2017 11:19:26 05/21/19 18 05/22/2017 CBC w/ auto diff MCH 30.0 pg 26.9-3 5.0 Not Available [facility] ([facility]) [address] [place] [address] Dr [address], [place], [address], 05/23/2017 11:19:26 05/21/19 18 05/22/2017 CBC w/ auto diff MCHC 31.9 g/dL 30.4-3 4.8 Not Available [facility] ([facility]) [address] [place] [address] [address], [place], [address], 05/23/2017 11:19:26 05/21/19 18 05/22/2017 CBC w/ auto diff RDW 46.5 fL 38.6-5 3.8 Not Available [facility] ([facility]) [address] [place] [address] [address], [place], [address], 05/23/2017 11:19:26 05/21/19 18 05/22/2017 CBC w/ auto diff platelet count 220 K/cum m 137-39 7 Not Available [facility] ([facility]) [address] [place] [address] [address], [place], [address], 05/23/2017 11:19:26 05/21/19 18 05/22/2017 CBC w/ auto diff neutrophils automated 66.5 % 41.0-7 7.0 Not Available [facility] ([facility]) [address] [place] [address] [address], [place], [address], 05/23/2017 11:19:26 05/21/19 18 05/22/2017 CBC w/ auto diff lymphocytes automated 24.6 % 14.0-4 8.0 Not Available [facility] ([facility]) [address] [place] [address] [address], [place], [address], 05/23/2017 11:19:26 05/21/19 18 05/22/2017 CBC w/ auto diff monocytes automated 5.2 % 4.0-13 .0 Not Available [facility] ([facility]) [address] [place] [address] [address], [place], [address], 05/23/2017 11:19:26 05/21/19 18 05/22/2017 CBC w/ auto diff eosinophils automated 2.8 % 1.0-8. 0 Not Available [facility] ([facility]) [address] [place] [address] Dr [address], [place], [address], 05/23/2017 11:19:26 05/21/19 18 05/22/2017 CBC w/ auto diff basophils automated 0.4 % 0.0-1. 5 Not Available [facility] ([facility]) [address] [place] [address] Dr [address], [place], [address], 05/23/2017 11:19:26 05/21/19 18 05/22/2017 CBC w/ auto diff immature granulocyte automated 0.5 % 0.0-1. 0 Not Available [facility] ([facility]) [address] [place] [address] Dr [address], [place], [address], 05/23/2017 11:19:26 05/21/19 18 05/22/2017 CMP, serum or plasm a sodium 139 mEq/L 134-14 5 Not Available [facility] ([facility]) [address] [place] [address] Dr [address], [place], [address], 05/23/2017 11:19:26 05/21/19 18 05/22/2017 CMP, serum or plasm a potassium 3.9 mEq/L 3.4-5. 4 Not Available [facility]) [address] [place] [address] Dr [address], [place], [address], 05/23/2017 11:19:26 05/21/19 18 05/22/2017 CMP, serum or plasm a chloride 103 mEq/L 97-109 Not Available [facility]) [address] [place] [address] Dr [address], [place], [address], 05/23/2017 11:19:26 05/21/19 18 05/22/2017 CMP, serum or plasm a CO2 22 mEq/L 22-32 Not Available [facility]) [address] [place] [address] Dr [address], [place], [address], 05/23/2017 11:19:26 05/21/19 18 05/22/2017 CMP, serum or plasm a glucose 92 mg/dL 65-99 Ef fecti ve 2016* New GLU Refer ence Range : 65-99 mg/dL Previ ous GLU Refer ence Range : 65-10 5 mg/dL Not Available [facility] ([facility]) [address] [place] [address] Dr [address], [place], [address], 05/23/2017 11:19:26 05/21/19 18 05/22/2017 CMP, serum or plasm a BUN 14 mg/dL 5-26 Not Available [facility] ([facility]) [address] [place] [address] Dr [address], [place], [address], 05/23/2017 11:19:26 05/21/19 18 05/22/2017 CMP, serum or plasm a creatinine 0.8 mg/dL 0.5-1. 5 Not Available [facility] ([facility]) [address] [place] [address] Dr [address], [place], [address], 05/23/2017 11:19:26 05/21/19 18 05/22/2017 CMP, serum or plasm a calcium 9.4 mg/dL 8.5-10 .3 Not Available [facility] ([facility]) [address] [place] [address] Dr [address], [place], [address], 05/23/2017 11:19:26 05/21/19 18 05/22/2017 CMP, serum or plasm a protein 6.5 g/dL 6.1-8. 3 Not Available [facility] ([facility]) [address] [place] [address] Dr [address], [place], [address], 05/23/2017 11:19:26 05/21/19 18 05/22/2017 CMP, serum or plasm a albumin 4.6 g/dL 3.7-5. 2 Not Available [facility] ([facility]) [address] [place] [address] Dr [address], [place], [address], 05/23/2017 11:19:26 05/21/19 18 05/22/2017 CMP, serum or plasm a alkaline phosphatase 90 IU/L 38-126 Not Available [facility] ([facility]) [address] [place] [address] Dr [address], [place], [address], 05/23/2017 11:19:26 05/21/19 18 05/22/2017 CMP, serum or plasm a ALT (SGPT) 21 IU/L 7-52 Not Available [facility] ([facility]) [address] [place] [address] [address], [place], [address], 05/23/2017 11:19:26 05/21/19 18 05/22/2017 CMP, serum or plasm a AST (SGOT) 16 IU/L 13-39 Not Available [facility] ([facility]) [address] [place] [address] [address], [place], [address], 05/23/2017 11:19:26 05/21/19 18 05/22/2017 CMP, serum or plasm a bilirubin, total 0.4 mg/dL 0.2-1. 5 Not Available [facility] [address] [place] [address] Dr [address], [place], [address], 05/23/2017 11:19:26 05/21/19 18 05/22/2017 CMP, serum or plasm a A/G ratio 2.4 mg/dL 1.1-2. 5 Not Available [facility] [address] [place] [address] [address], [place], [address], 05/23/2017 11:19:26 05/21/19 18 05/22/2017 GFR, estim ated (eGFR ), serum GFR/black >60 mL/mi n/1.7 3m2 >60 Not Available [facility] [address] [place] [address] Dr [address], [place], [address], 05/23/2017 11:19:27 05/21/19 18 05/22/2017 GFR, estim ated (eGFR ), serum GFR/white >60 mL/mi n/1.7 3m2 >60 Chron ic Kidne y Disea se: Less than 60 ml/mi n/1.7 3 squar e meter s End Stage Renal Disea se: Less than 15 ml/mi n/1.7 3 squar e meter s Not Available [facility]) [address] [place] [address] Dr [address], [place], [address], 05/23/2017 11:19:27 05/21/19 18 05/22/2017 proge stero [...] [facility] ([facility]) [address] [place] [address] Dr [address], [place], [address], 05/23/2017 11:19:27 05/21/19 18 05/22/2017 FSH (foll icle- stimu latin g hormo ne), serum FSH 4.75 mIU/m L FSH Refer ence Range Males : 1.27 - 19.26 Femal es: Mid-F ollic ular Phase : 3.85 - 8.78 Mid-C ycle Peak: 4.54 - 22.51 Mid-L uteal Phase : 1.79 - 5.12 Postm enopa usal: 16.74 - 113.5 9 Not Available [facility] ([facility]) [address] [place] [address] Dr [address], [place], [address], 05/23/2017 11:19:27 05/21/19 18 05/22/2017 estra diol, serum estradiol 42 pg/mL ESTRA DIOL REFER ENCE RANGE Male: <20 - 47 pg/ml Femal e: Post Menop ausal <20 - 40 pg/ml Mid-f ollic ular phase 27 - 122 pg/ml Mid-l uteal phase 49 - 291 pg/ml Jackelyn- ovula tory phase 95 - 433 pg/ml Not Available [facility] ([facility]) [address] [place] [address] [address], [place], [address], 05/23/2017 11:19:28 05/21/19 18 05/22/2017 vitam in B12, serum vitamin B12 502 pg/mL 180-91 4 Not Available [facility] ([facility]) [address] [place] [address] Dr [address], [place], [address], 05/23/2017 11:19:28 05/21/19 18 05/22/2017 T4, free, serum thyroxine free (free T4) 0.89 NG/dL 0.58-1 .64 Not Available [facility] ([facility]) [address] [place] [address] Dr [address], [place], [address], 05/23/2017 11:19:29 05/21/19 18 05/22/2017 TSH, serum or plasm a TSH 1.08 mU/L 0.34-5 .00 Not Available [facility] ([facility]) [address] [place] [address] Dr [address], [place], [address], 05/23/2017 11:19:29 05/21/19 18 05/22/2017 testo stero [...] L 23-16 5 nmol/ L Not Available [facility] ([facility]) [address] [place] [address] Dr [address], [place], [address], 05/23/2017 11:19:30 05/21/19 18 05/23/2017 testo stero ne, free + total , serum testosterone , total (female and children) 26.0 NG/dL 10.0-5 2.0 Preme nopau meir 10-52 ng/dL (Grea ter than 18 years ) Postm enopa usal 6-30 ng/dL Not Available [facility] ([facility]) [address] [place] [address] Dr [address], [place], [address], 05/23/2017 11:19:30 05/21/19 18 05/23/2017 testo stero [...] in chapito ntrat ions. Not Available [facility] ([facility]) [facility] [facility] [address], [place], [address], 05/23/2017 11:19:30 05/21/19 18 05/22/2017 vitam in [...] latio n requi red. Not Available [facility] ([facility]) [facility] [facility] [address], [place], [address], 05/23/2017 11:19:30 05/21/19 18 05/21/2017 urina lysis , dipst ick Leukocytes - Not Available Main Of fice [address], [place], [address], 05/21/2017 09:47:45 05/21/19 18 05/21/2017 urina lysis , dipst ick Nitrite negati ve Not Available Main Office [address], [place], [address], 05/21/2017 09:47:45 05/21/19 18 05/21/2017 urina lysis , dipst ick Urobilinogen - Not Available Main Office [address], [place], [address], 05/21/2017 09:47:45 05/21/19 18 05/21/2017 urina lysis , dipst ick Protein - Not Available Main Offic e [address], [place], [address], 05/21/2017 09:47:45 05/21/19 18 05/21/2017 urina lysis , dipst ick pH 5.0 Not Available Main Offic e [address], [place], [address], 05/21/2017 09:47:45 05/21/19 18 05/21/2017 urina lysis , dipst ick Blood - Not Available Main Offic e [address], [place], [address], 05/21/2017 09:47:45 05/21/19 18 05/21/2017 urina lysis , dipst ick Specific [place] 1.020 Not Available Main O ffice [address], [place], [address], 05/21/2017 09:47:45 05/21/19 18 05/21/2017 urina lysis , dipst ick Ketone - Not Available Main Offic e [address], [place], [address], 05/21/2017 09:47:45 05/21/19 18 05/21/2017 urina lysis , dipst ick Bilirubin - Not Available Main Off ice [address], [place], [address], 05/21/2017 09:47:45 05/21/19 18 05/21/2017 urina lysis , dipst ick Glucose - Not Available Main Offic e [address], [place], [address], 05/21/2017 09:47:45 05/21/19 18 05/21/2017 pregn bainca test, urine HCG negati ve Not Available Main Office [address], [place], [address], 05/21/2017 09:48:14 10/08/19 20 10/10/2019 pap, LB Pap test thin prep Negati ve for Intrae pithel ial Lesion or Malign bianca normal ACCES ELISE #: [id number] [facility] e: Cervi jovani/E ndoce rvica l LMP: [id number] Date Taken : 10/07 Speci men [...] provi ded by Assoc [facility]ated Patho logis [facility] [employer], d/b/a [facility] [place], [address] [place] [address] Darrion Zhang MD, Labor atory Direc tor. Case revie wed and diagn osis [facility], d/b/a PathNancy [facility]mos, [address] , [place] [address] Darrion Zhang MD, Labor atory Dire tor. CONFI DENTI AL Not Available [facility]) [address], [place], [address], 10/10/2019 10:41:22 10/08/19 20 10/08/2019 pregn bianca test, urine HCG negati ve Not Available Main Office [address], [place], [address], 10/08/2019 08:45:24 10/08/1910/08/2019 urina lysis , dipst ick Leukocytes - Not Available Main Of fice [address], [place], [address], 10/08/2019 08:45:19 10/08/19 20 10/08/2019 urina lysis , dipst ick Nitrite negati ve Not Available Main Office [address], [place], [address], 10/08/2019 08:45:19 10/08/19 20 10/08/2019 urina lysis , dipst ick Urobilinogen - Not Available Main Office [address], [place], [address], 10/08/2019 08:45:19 10/08/19 20 10/08/2019 urina lysis , dipst ick Protein - Not Available Main Offic e [address], [place], [address], 10/08/2019 08:45:19 10/08/1910/08/2019 urina lysis , dipst ick pH 6.0 Not Available Main Offic e [address], [place], [address], 10/08/2019 08:45:19 10/08/1912 1010/08/2019 urina lysis , dipst ick Blood - Not Available Main Offic e [address], [place], [address], 10/08/2019 08:45:19 10/08/19 20 10/08/2019 urina lysis , dipst ick Specific [place] 1.015 Not Available Main O ffice [address], [place], [address], 10/08/2019 08:45:19 10/08/19 20 10/08/2019 urina lysis , dipst ick Ketone - Not Available Main Offic e [address], [place], [address], 10/08/2019 08:45:19 10/08/19 20 10/08/2019 urina lysis , dipst ick Bilirubin - Not Available Main Off ice [address], [place], [address], 10/08/2019 08:45:19 10/08/1910/08/2019 urina lysis , dipst ick Glucose - Not Available Main Offic e [address], [place], [address], 10/08/2019 08:45:19 10/08/19 20 10/08/2019 urina lysis , dipst ick Appearance - Not Available Main Of fice [address], [place], [address], 10/08/2019 08:45:19 10/08/1910/08/2019 urina lysis , dipst ick Color - Not Available Main Offic e [address], [place], [address], 10/08/2019 08:45:19 Result Notes None recorded. Procedures Surgical History Date Name Laterality Status Provider Name and Address Organization Details Recorded Time 10/08/19 Date of Last Pap Smear completed Meredith Garay [facility], 10/08/2019 08:44:40 Cholecystectomy completed [facility], 05/21/2017 09:26:05 Tonsillectomy completed [facility], 05/21/2017 09:26:22 Imaging Results [...] Updated DateTime 8 172.72 cm 45.8 kg/m2 288221. 3 g 81 /min 97.5 [degF] 110/82 mm[Hg] [facility], 8 09:37:30 Date Recorded Body height Body mass index (BMI) Body weight Heart rate Body temperature Systolic And Diastolic Systolic And Diastolic Provider Name and Address Organization Details Last Updated DateTime 8 172.72 cm 45.8 kg/m2 808749. 3 g 90 /min 96.8 [degF] 123/91 mm[Hg] 122/82 mm[Hg] [facility], 8 09:43:52 Date Recorded Body height Body mass index (BMI) Body weight Respiratory rate Heart rate Body temperature Systolic And Diastolic Provider Name and Address Organization Details Last Updated DateTime 0 172.72 cm 47.3 kg/m2 967933. 23 g 16 /min 78 /min 97.7 [degF] 131/76 mm[Hg] [facility] [place] [facility], 0 08:43:01 Social History Question Answer Notes LastModified by Organizat ion Details LastModified Time Tobacco Smoking Status Former [facility]oker [facility] Available [facility] 01/20/2020 03:20:42 Able To Swim? Yes Information not available 05/21/2017 Accident Related Injury No Information not available 05/21/2017 Do You Have An Advance Directive? No [id number] Information not available 01/20/2020 How Many Years Have You Consumed Alcohol? 18 [id number] Information not available 01/20/2020 Animal Exposure? Yes Informat ion not available 05/21/2017 Are You Currently Sexually Active With Anyone Who Has Traveled (within The Last 12 Weeks) To A Zika-affected Area? No [id number] Information not available 01/20/2020 Do You Wear A Helmet When Biking? No [id number] Information not available 01/20/2020 Are You Blind Or Do You Have Difficulty Seeing? No [id number] Information not available 01/20/2020 What Is Your Level Of Caffeine Consumption? Occasional [id number] Information not available 01/20/2020 How Much Tobacco Do You Chew? None [id number] Information not available 01/20/2020 Concerns About Meeting Basic Needs (food, Housing, Heat, Etc)? No Information not available 05/21/2017 Are You Deaf Or Do You Have Serious Difficulty Hearing? No [id number] Information not available 01/20/2020 What Type Of Diet Are You Following? REGULAR [id number] Information not available 01/20/2020 Which Illicit Or Recreational Drugs Have You Used? None [id number] Information not available 01/20/2020 Education 2 Year College Informatio n not available 05/21/2017 Family History Of Heart Disease? Yes Information not available 05/21/2017 Have There Been Any Changes To Your Family Or Social Situation? No [id number] Information no t available 01/20/2020 When Did You Quit Smoking? 1-5yearssincel astciyair [id number] Information not available 01/20/2020 Are There Any Guns Present In Your Home? No [id number] Information not available 01/20/2020 Hard Of Hearing Or Deaf In One Or Both Ears? No Information not available 05/21/2017 Legally Blind In One Or Both Eyes? No Information no t available 05/21/2017 Live Alone Or With Others? With Others Information not available 05/21/2017 Do You Have A Medical Power Of Database Report Writer? No [id number] Information not available 01/20/2020 What Was The Date Of Your Most Recent Tobacco Screening? 05/28/2017 [id number] Information not available 01/20/2020 How Many Children Do You Have? 1 [id number] Information not available 01/20/2020 Performs Monthly Self-breast Exam? No Information no t available 05/21/2017 Do You Have Any Pets? Yes [id number] Information not available 01/20/2020 Difficulty Reading? No Information not available 05/21/2017 Seat Belts Used Routinely Yes Information not available 05/21/2017 Are You Sexually Active? Yes [id number] Information not available 01/20/2020 Smoke Alarm In Home Yes Information not available 05/21/2017 Do You Have Smoke And Carbon Monoxide Detectors In Your Home? Yes [id number] Information not available 01/20/2020 Are You Passively Exposed To Smoke? No Information no t available 05/21/2017 Are There Any Smokers In Your House? No Information not available 05/21/2017 How Much Tobacco Do You Smoke? No [id number] Information not available 01/20/2020 General Stress Level Medium Information not available 05/21/2017 Sun Exposure Occasional Information not available 05/21/2017 Do You Use Sunscreen Routinely? Yes [id number] Information not available 01/20/2020 TB Risk Low Information no t available 05/21/2017 Has Tobacco Cessation Counseling Been Provided? No [id number] Information not available 01/20/2020 How Many Years Have You Smoked Tobacco? 20 [id number] Information not available 01/20/2020 Difficulty Watching TV? No Information not available 05/21/2017 Do You Have Difficulty Walking Or Climbing Stairs? No [id number] Information not available 01/20/2020 Sex: Unknown Functional Status Question Answer Note LastModified by Organizat ion Details LastModified Time What is your level of alcohol consumption? Occasional [id number] Information not available 01/20/2020 Are you currently employed? Yes [id number] Information not available 01/20/2020 Do you have transportation difficulties? No [id number] Information not available 01/20/2020 Are you able to walk independently without assistance or assistive devices? YESWOREST [id number] Information not available 01/20/2020 Do you have difficulty doing errands alone? No [id number] Information not available 01/20/2020 Are you able to care for yourself independently? 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 No [id number] Information not available 01/20/2020 What is your exercise level? Occasional [id number] Information not available 01/20/2020 Mental Status Question Answer Note LastModified by Organization D etails LastModified Time Do you have difficulty concentrating, remembering or making decisions? Yes [id number] Information no t available 01/20/2020 Family History [...] Diagnosis SNOMED-CT Code Diagnosis ICD10 Code Diagnosis IMO Codes Diagnosis Note [address] [place] [address] 05/21/2017 09:01:23 05/21/2017 10:24:05 Gynecologic examination 42175545 Z01.411 pap smear collected Disorder o f menstruation 530125189 N92.5 Body mass index 40+ - severely obese 836768483 Z68.42 labs drawn Female hirsutism 7037220 9 L68.0 Fatigue 34979727 R53.83 Abnormal weight gain 161 809589 R63.5 [address] [place] [address] 05/28/2017 08:56:06 05/28/2017 10:30:23 Obesity 852082220 E66.9 also order for judge, pcos nutrition counseling Vitamin D deficiency 347 39716 E55.9 Body mass index 40+ - severely obese 516301945 Z68.42 labs drawn [id number] Ceasar Husain DO Main Office [address] [place] [address] 10/08/2019 08:34:44 10/08/2019 09:31:04 Gynecologic examination 82095032 Z01.411 pap smear collected. pt to schedule screening mammogram at [facility]. 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 f/u 3 months, if tx not helping consider danazol or derm referral. Pruritic rash 40624710 L 28.2 Body mass index 40+ - severely obese 632624503 Z68.42 labs drawn Health Concerns Section Related Observation LastModified by Organization Detai ls LastModified Time None Recorded Concern Status LastModified by Organization Details LastModified Time None Recorded Advance Directives Directive N: Payers Insurance Date Sequence Insurance Name Policy Number Policy Newby Covered Member ID Newby Member ID Guarantor Name 10/08/2019 1 [place] [id number] Raman Haskins [id number] 05/18/2017 1 *SELF PAY* 10/08/2019 1 [employer] [id number] Raman Haskins [id number] Notes Date Note Type Note Provider Name [...] Ceasar Husain DO [address], [place], [address], [facility], 05/21/2017 21:38:05 05/28/2017 text/html Patient presents for lab follow-up of: obesity. all wnl except low vit d. Ceasar Husain DO [address], [place], [address], [facility], 05/30/2017 19:00:31 10/08/2019 [...] [address], [place], [address], [facility], 01/04/2020 13:52:20 OBGyn Episode No OBEpisode recorded.
--- OUTSIDE RECORDS SUMMARY | 2025-02-03 11:10 | XMS_ITS | Encounter Summary ---
Author Organization Healthcare Address [address] [place] [address] Care Team Providers Care Cop Name Role Phone Priscila Caldera DO Primary Care Provider [phone] Encounter Details Date Type Department Care Team (Late st Contact Info) Description 03/30/2011 Orders Only External Location [address] [place] [address] Provider, External Social History Tobacco Use Types [...] on filedocumented in this encounter Care Teams Cop Relationship Specialty Start Date End Date Priscila Caldera DO [address] [place] [address] PCP - General 03/30/22 documented as of this encounter
--- OUTSIDE RECORDS SUMMARY | 2025-02-03 11:10 | XMS_ITS | Encounter Summary ---
Author Organization Healthcare Address [address] [place] [address] Care Team Providers Care Carpenter Assembler Name Role Phone Priscila Caldera DO Primary Care Provider [phone] Encounter Details Date Type Department Care Team (Late st Contact Info) Description 05/02/2010 Orders Only External Location [address] [place] [address] Provider, External Social History Tobacco Use Types [...] on filedocumented in this encounter Care Teams Carpenter Assembler Relationship Specialty Start Date End Date Priscila Caldera DO [address] [place] [address] PCP - General 03/30/22 documented as of this encounter
== END 2025-01-30 23:59 ==
LOC: LAB.DROPOF 02-03 11:02
PROVIDERS: PCP Nurse Practitioner Family; Visit Provider Nurse Practitioner
DX: R35.0 Frequency of micturition (principal)
CPT/HCPCS: 87086; 87088; 87186